=== PATIENT | female | born 1945 | race Caucasian/White ===

== ENCOUNTER 2018-11-10 12:21 | Emergency (ER) | payer MEDICARE ==
[2018-11-10 12:38] VITALS: BP 144/78
--- NOTE | 2018-11-10 13:24 | UC ---
Abdominal Pain Female HPI - HPI Summary HPI Summary: 73 year old female with PMH + for diverticulitis requiring colon resection in 2003 presents with: - loose stools x 3-4 days, multiple stools the first day, today only 1, improving daily - Blood noted in toliet bowl this AM. none prior days. - Abdominal pain, cramping days 1,2. now resolved, some tenderness still to RLQ , LLQ - bloated feeling. - Dizzinesss day 1, 2 while increased stooling, now resolved. Denies dark stooling, coffee ground stools. + for hemmorhoid in 1970's, none since. Decreased appetite, but eating well, + drinking without difficulty. Mild nausea , has improved since onset. no vomiting. NO new medications/ foods, no ill contacts no recent ABX, hospitalizations. No fever, chills. + fatigue, no other symptoms. - History of Current Complaint Chief Complaint: UCGI Stated Complaint: BLOODY STOOL Time Seen by Provider: 11/10/18 12:47 Hx Obtained From: Patient ?: No Onset/Duration: Sudden Onset, Lasting Days Severity Currently: None Pain Intensity: 0 Pain Scale Used: 0-10 Numeric Location: Discrete At: RLQ, Discrete At: LLQ Radiates: No Character: Cramping, Sharp - RLQ day 1 Aggravating Factor(s): Nothing Alleviating Factor(s): Nothing Associated Signs and Symptoms: Positive: Blood in Stool, Decreased Appetite Allergies/Adverse Reactions: Allergies Allergy/AdvReac Type Severity Reaction Status Date / Time Sulfa (Sulfonamide Allergy Unknown Verified 11/10/18 14:23 Antibiotics) Reaction Details Home Medications: Home Medications Ezetimibe TAB* [Zetia TAB*] 10 mg PO DAILY 11/10/18 [History Confirmed 11/10/18] Ezetimibe TAB* [Zetia TAB*] 10 mg PO DAILY 11/10/18 [History Confirmed 11/10/18] Oxybutynin TAB* [Ditropan TAB*] 5 mg PO DAILY 11/10/18 [History Confirmed ] cloNIDine TAB* [Catapres 0.1 MG TAB*] 0.1 mg PO BEDTIME 11/10/18 [History Confirmed 11/10/18] PMH/Surg Hx/FS Hx/Imm Hx Previously Healthy: Yes - Surgical History Surgical History: Yes Surgery Procedure, Year, and Place: Partial Hysterectomy 1979. Left Breast biopsies (benign). HPV. Bowel Resection 2003 - Family History Known Family History: Positive: Non-Contributory - Social History Alcohol Use: Occasionally Alcohol Amount: few glasses wine about every other day Substance Use Type: None Smoking Status (MU): Former Smoker Have You Smoked in the Last Year: No When Did the Patient Quit Smoking/Using Tobacco: 2003 - Immunization History Most Recent Influenza Vaccination: this season 2013 Review of Systems All Other Systems Reviewed And Are Negative: Yes Constitutional: Negative: Fever, Chills Respiratory: Positive: Negative Cardiovascular: Positive: Negative Gastrointestinal: Positive: Abdominal Pain - resolved, Diarrhea, Nausea, Other - + blood in stool Neurological: Positive: Negative Is Patient Immunocompromised?: No Physical Exam Triage Information Reviewed: Yes Appearance: Well-Appearing, No Pain Distress, Well-Nourished Vital Signs: Initial Vital Signs Temp 99.0 F 11/10/18 12:31 Pulse 89 11/10/18 12:31 Resp 16 11/10/18 12:31 BP 144/78 11/10/18 12:31 Pulse Ox 95 11/10/18 12:31 Vital Signs Reviewed: Yes Eye Exam: Normal ENT: Positive: Hearing grossly normal Abdomen Description: Positive: No Organomegaly, Soft, Distended - mild, [place] '[place] Tenderness, Other: - - putnam - normal rectal examination other than one small, non-thrombosed, nontender hemorrhoid.. Negative: Bruit, CVA Tenderness (R), CVA Tenderness (L), Guarding, Hernia @, Hepatomegaly, Splenomegaly Bowel Sounds: Positive: Present, Other: - NABS Pelvic Exam: Positive: Other - stool occult positive, no hemmorhoids seen. Musculoskeletal: Positive: Other: - normal gait Skin Exam: Normal Abd Pain Female Course/Dx - Course Course Of Treatment: Stool occult +, no shirlene blood seen, no hemorrhoids/ fisures seen, patient sent to ER fr further work up. In agreement, declined ambulance. - Differential Dx/Diagnosis Differential Diagnosis: Bowel Obstruction, Diverticulitis, Pelvic Inflammatory Disease Provider Diagnosis: Blood in stool Discharge - Sign-Out/Discharge Documenting (check all that apply): Patient Departure All imaging exams completed and their final reports reviewed: No Studies - Discharge Plan Condition: Guarded Disposition: HOME-RECOMMEND TO ED Patient Education Materials: Acute Diarrhea (ED), Acute Abdominal Pain (ED) Referrals: Ramon Delacruz MD [Primary Care Provider] - Additional Instructions: - Testing showed there was blood in your stool without any source found rectally. Due to this and your lower abdominal pain, it was recommended that you receive more care at the ER. Please go there directed from here. - Only water until seen at ER please - Billing Disposition and Condition Condition: GUARDED Disposition: Home-Recommend to ED - Attestation Statements Provider Attestation: I was available for consult. This patient was seen by the STEPHANIE. The patient was not presented to, seen by, or examined by me. Saleem Gutierrez MD
== END 2018-11-10 13:25 | disposition home health service (06) ==
LOC: UCEAST 12:21
DX: K92.1 Melena (principal); Z88.2 Allergy status to sulfonamides; Z87.891 Personal history of nicotine dependence
CPT/HCPCS: 82272; 99211; G0463

== ENCOUNTER 2018-11-10 14:17 | Emergency (ER) | payer MEDICARE ==
[2018-11-10 14:53] LABS: ABS Eosinophils 0.2 10^3/ul (0-0.6); ABS Lymphocytes 1.3 10^3/ul (1.0-4.8); ABS Monocytes 0.5 10^3/ul (0-0.8); ABS Neutrophils 6.3 10^3/ul (1.5-7.7); Hematocrit 42 % (35-47); Hemoglobin 14.3 g/dL (12.0-16.0); Lymphocyte % 15.9 %; Mean Corpuscular HGB Conc 34 g/dL (31-36); Mean Corpuscular Hemoglobin 31 pg (27-31); Mean Corpuscular Volume 90 fL (80-97); Mean Platelet Volume 8.9 fL (7.4-10.4); Platelet Count 188 10^3/uL (150-450); Red Blood Count 4.68 10^6 /uL (3.70-4.87); Red Cell Distribution Width 13 % (10-15); White Blood Count 8.3 10^3/uL (3.5-10.8)
[2018-11-10 15:04] LABS: Activated Partial Thrombo Time 34.3 seconds (26.0-38.0); INR 0.89 (0.82-1.09)
[2018-11-10 15:24] LABS: Albumin 4.5 g/dL (3.2-5.2); Albumin/Globulin Ratio 1.6 (1-3); BUN/Creatinine Ratio 22.1 (8-20); Calcium 9.9 mg/dL (8.6-10.3); EGFR African American 89.2 (>60); EGFR Non-African American 73.7 (>60); Globulin 2.9 g/dL (2-4); Potassium 3.9 mmol/L (3.5-5.0); Total Bilirubin 0.4 mg/dL (0.2-1.0); Total Protein 7.4 g/dL (6.4-8.9)
[2018-11-10 19:39] LABS: C Reactive Protein 13.93 mg/L (<8.01)
--- NOTE | 2018-11-10 19:39 | ED ---
GI/ HPI - HPI Summary HPI Summary: Patient is a 73 y/o F presenting to ED with complaints of diarrhea and blood in stool. She states that she has had diarrhea for 3-4 days. Diarrhea is characterized as "pure liquid". Yesterday, she reports she had 2-4 episodes of diarrhea. This morning, patient had a BM that was productive of diarrhea with bright red blood. She states, that the "whole toilet bowl was full of blood". Patient only had one BM today. Patient went to , no hemorrhoids noted, patient was sent to ED for further workup. She endorses some lower abdominal pain but denies fever and vomiting. On triage, pain is rated 1/10, nothing is noted to aggravate/alleviate Sx. Patient reports no recent travel outside of country. She notes that she had a colon resection in 2013 for intestinal infection. Last colonoscopy was in 2013 and is reported to have been normal. BP is 196/99 in room, she states that she took her BP meds this morning. Patient is on Xanax, Sular, Clonidine, Symbicort, Ditropan, Zetia. PCP is Dr. Delacruz. Home medications and allergies are reviewed. - History of Current Complaint Chief Complaint: EDGIBleed Time Seen by Provider: 11/10/18 19:22 Stated Complaint: DIARRHEA RECTAL BLEEDING PER PT Hx Obtained From: Patient Onset/Duration: Started Hours Ago - blood in diarrhea, Started Days Ago - diarrhea, Still Present Timing: Intermittent Current Severity: Mild Pain Intensity: 0 Location of Pain: Other - lower Associated Signs and Symptoms: Positive: Bright Red Blood w/Stool, Diarrhea, Abdominal Pain. Negative: Vomiting, Fever Aggravating Factor(s): Nothing Alleviating Factor(s): Nothing - Allergy/Home Medications Allergies/Adverse Reactions: Allergies Allergy/AdvReac Type Severity Reaction Status Date / Time Sulfa (Sulfonamide Allergy Unknown Verified 11/10/18 14:23 Antibiotics) Reaction Details Home Medications: Home Medications ALPRAZolam TAB* [Xanax TAB*] 0.25 mg PO TID 11/10/18 [History Confirmed 11/10/18 ] Nisoldipine ER (NF) [Sular (NF)] 8.5 mg PO DAILY 11/10/18 [History Confirmed 11/21] PMH/Surg Hx/FS Hx/Imm Hx Cardiovascular History: Reports: Hx Hypertension Respiratory History: Reports: Hx Chronic Obstructive Pulmonary Disease (COPD) Sensory History: Denies: Hx Legally Blind Opthamlomology History: Denies: Hx Legally Blind - Cancer History Hx Chemotherapy: No Hx Radiation Therapy: No - Surgical History Surgery Procedure, Year, and Place: Partial Hysterectomy 1979. Left Breast biopsies (benign). HPV. Bowel Resection 2003 Infectious Disease History: No Infectious Disease History: Denies: Traveled Outside the [place] in Last 30 Days Comment Only: Hx Shingles - vaccine 04/02/14 - Family History Known Family History: Positive: Other - breat malignancy - Social History Alcohol Use: Daily Alcohol Amount: few glasses wine about every other day Substance Use Type: Reports: None Smoking Status (MU): Former Smoker Have You Smoked in the Last Year: No Review of Systems Negative: Fever Positive: Abdominal Pain, Diarrhea - w/ blood in stool . Negative: Vomiting All Other Systems Reviewed And Are Negative: Yes Physical Exam - Summary Physical Exam Summary: VITAL SIGNS: Reviewed. GENERAL: Patient is a well-developed and nourished female who is lying comfortable in the stretcher. Patient is not in any acute respiratory distress. HEAD AND FACE: No signs of trauma. No ecchymosis, hematomas or skull depressions. No sinus tenderness. EYES: PERRLA, EOMI x 2, No injected conjunctiva, no nystagmus. EARS: Hearing grossly intact. Ear canals and tympanic membranes are within normal limits. MOUTH: Oropharynx within normal limits. NECK: Supple, trachea is midline, no adenopathy, no JVD, no carotid bruit, no c- spine tenderness, neck with full ROM CHEST: Symmetric, no tenderness at palpation LUNGS: Clear to auscultation bilaterally. No wheezing or crackles. CVS: Regular rate and rhythm, S1 and S2 present, no murmurs or gallops appreciated. ABDOMEN: Soft, non-tender. No signs of distention. No rebound no guarding, and no masses palpated. Bowel sounds are mildly hyperactive. RECTAL EXAM: No hemorrhoids, rectum is empty, no masses. Female blocker and cutter contact lens, nurse Lorena, was present for exam. EXTREMITIES: FROM in all major joints, no edema, no cyanosis or clubbing. NEURO: Alert and oriented x 3. No acute neurological deficits. Speech is normal and follows commands. SKIN: Dry and warm Triage Information Reviewed: Yes Vital Signs On Initial Exam: Initial Vitals Temp Pulse Resp BP Pulse Ox 98.5 F 79 16 165/94 98 11/10/18 14:21 11/10/18 14:21 11/10/18 14:21 11/10/18 14:21 11/10/18 14:21 Vital Signs Reviewed: Yes Diagnostics - Vital Signs Vital Signs Temp Pulse Resp BP Pulse Ox 11/10/18 17:46 98.1 F 67 20 153/80 97 11/10/18 15:55 98 F 61 16 153/79 96 11/10/18 14:21 98.5 F 79 16 165/94 98 - Laboratory Lab Results: Lab Results 11/10/18 11/10/18 11/10/18 Range/Units 14:43 14:43 14:43 WBC 8.3 (3.5-10.8) 10^3/uL RBC 4.68 (3.70-4.87) 10^6 /uL Hgb 14.3 (12.0-16.0) g/dL Hct 42 (35-47) % MCV 90 (80-97) fL MCH 31 (27-31) pg MCHC 34 (31-36) g/dL RDW 13 (10-15) % Plt Count 188 (150-450) 10^3/uL MPV 8.9 (7.4-10.4) fL Neut % (Auto) 75.8 % Lymph % (Auto) 15.9 % [place] % (Auto) 5.9 % Eos % (Auto) 2.0 % Baso % (Auto) 0.4 % Absolute Neuts (auto) 6.3 (1.5-7.7) 10^3/ul Absolute Lymphs (auto) 1.3 (1.0-4.8) 10^3/ul Absolute Monos (auto) 0.5 (0-0.8) 10^3/ul Absolute Eos (auto) 0.2 (0-0.6) 10^3/ul Absolute Basos (auto) 0.0 (0-0.2) 10^3/ul Absolute Nucleated RBC 0.0 10^3/ul Nucleated RBC % 0.0 INR (Anticoag Therapy) 0.89 (0.82-1.09) APTT 34.3 (26.0-38.0) seconds Sodium 139 (135-145) mmol/L Potassium 3.9 (3.5-5.0) mmol/L Chloride 109 (101-111) mmol/L Carbon Dioxide 22 (22-32) mmol/L Anion Gap 8 (2-11) mmol/L BUN 17 (6-24) mg/dL Creatinine 0.77 (0.51-0.95) mg/dL Est GFR ( Amer) 89.2 (>60) Est GFR (Non-Af Amer) 73.7 (>60) BUN/Creatinine Ratio 22.1 H (8-20) Glucose 94 (70-100) mg/dL Calcium 9.9 (8.6-10.3) mg/dL Total Bilirubin 0.40 (0.2-1.0) mg/dL AST 14 (13-39) U/L ALT 14 (7-52) U/L Alkaline Phosphatase 99 (34-104) U/L C-Reactive Protein Pending Total Protein 7.4 (6.4-8.9) g/dL Albumin 4.5 (3.2-5.2) g/dL Globulin 2.9 (2-4) g/dL Albumin/Globulin Ratio 1.6 (1-3) Blood Type Antibody Screen 11/10/18 Range/Units 14:43 WBC (3.5-10.8) 10^3/uL RBC (3.70-4.87) 10^6 /uL Hgb (12.0-16.0) g/dL Hct (35-47) % MCV (80-97) fL MCH (27-31) pg MCHC (31-36) g/dL RDW (10-15) % Plt Count (150-450) 10^3/uL MPV (7.4-10.4) fL Neut % (Auto) % Lymph % (Auto) % [place] % (Auto) % Eos % (Auto) % Baso % (Auto) % Absolute Neuts (auto) (1.5-7.7) 10^3/ul Absolute Lymphs (auto) (1.0-4.8) 10^3/ul Absolute Monos (auto) (0-0.8) 10^3/ul Absolute Eos (auto) (0-0.6) 10^3/ul Absolute Basos (auto) (0-0.2) 10^3/ul Absolute Nucleated RBC 10^3/ul Nucleated RBC % INR (Anticoag Therapy) (0.82-1.09) APTT (26.0-38.0) seconds Sodium (135-145) mmol/L Potassium (3.5-5.0) mmol/L Chloride (101-111) mmol/L Carbon Dioxide (22-32) mmol/L Anion Gap (2-11) mmol/L BUN (6-24) mg/dL Creatinine (0.51-0.95) mg/dL Est GFR ( Amer) (>60) Est GFR (Non-Af Amer) (>60) BUN/Creatinine Ratio (8-20) Glucose (70-100) mg/dL Calcium (8.6-10.3) mg/dL Total Bilirubin (0.2-1.0) mg/dL AST (13-39) U/L ALT (7-52) U/L Alkaline Phosphatase (34-104) U/L C-Reactive Protein Total Protein (6.4-8.9) g/dL Albumin (3.2-5.2) g/dL Globulin (2-4) g/dL Albumin/Globulin Ratio (1-3) Blood Type A Positive Antibody Screen Negative Result Diagrams: 11/10/18 14:43 11/10/18 14:43 Lab Statement: Any lab studies that have been ordered have been reviewed, and results considered in the medical decision making process. Re-Evaluation - Re-Evaluation First Eval Re-Evaluation Time: 20:30 Comment: Patient reports that she just wants to leave and does not want to wait for her BP to lower. Labs were unremarkable and her physical exam was benign with the exception of mild hyperactive bowel sounds. Patient is most likely to have viral enteritis. Patient will be discharged to home to follow up with GI for possible colonoscopy. Patient agreeable with this plan. GIGU Course/Dx - Course Course Of Treatment: Patient is a 73 y/o F presenting to ED with complaints of diarrhea and blood in stool. She states that she has had diarrhea for 3-4 days. Diarrhea is characterized as "pure liquid". Yesterday, she reports she had 2-4 episodes of diarrhea. This morning, patient had a BM that was productive of diarrhea with bright red blood. She states, that the "whole toilet bowl was full of blood". Patient only had one BM today. Patient went to , no hemorrhoids noted, patient was sent to ED for further workup. On physical exam, patient is noted to have mildly hyperactive bowel sounds. On rectal exam, no hemorrhoids, empty rectum, and no masses. Labs showed Hgb 14.3, Hct 42, WBC 8.3 , BUN/creatinine ratio 22.1, CRP 13.93. Patient was given lomotil, 1 tab PO, and clonidine 0.1 mg PO. Patient reports that she just wants to leave and does not want to wait for her BP to lower. Labs were unremarkable and her physical exam was benign with the exception of mild hyperactive bowel sounds. Patient is most likely to have viral enteritis. Patient will be discharged to home to follow up with GI for possible colonoscopy. Patient agreeable with this plan. - Diagnoses Provider Diagnoses: Enteritis Discharge - Sign-Out/Discharge Documenting (check all that apply): Patient Departure - discharge Patient Received Moderate/Deep Sedation with Procedure: No - Discharge Plan Condition: Stable Disposition: HOME Patient Education Materials: Acute Diarrhea (ED), Enteritis (ED) Referrals: Ramon Delacruz MD [Primary Care Provider] - 3 Days Kurt Mullins MD [Medical Doctor] - As Soon As Possible Additional Instructions: FOLLOW UP WITH REVENUE SPECIALIST SOON POSSIBLE FOR POSSIBLE COLONOSCOPY. PLEASE RETURN TO ED FOR ANY NEW OR WORSENING SYMPTOMS. FOLLOW UP WITH YOUR PRIMARY CARE PHYSICIAN WITHIN THREE DAYS. - Attestation Statements Document Initiated by Claudiaibmarcos: Yes Documenting Scribe: LISA SZYMANSKI Provider For Whom Manuel is Documenting (Include Credential): JILL GREER MD Scribe Attestation: ILISA, scribed for JILL GREER MD on 11/10/18 at 2038. Status of Scribe Document: Ready
[2018-11-10] MEDS ORDERED: cloNIDine TAB* 0.1 MG PO ONE (19:44)
[2018-11-10] MEDS ORDERED: Diphenoxylat/Atrop 2.5-0.025M* 1 TAB PO ONE (19:45)
[2018-11-10 20:29] VITALS: BP 166/93
== END 2018-11-10 20:28 | disposition home or self-care (01) ==
LOC: ED 14:17
DX: K52.9 Noninfective gastroenteritis and colitis, unspecified (principal); I10 Essential (primary) hypertension; J44.9 Chronic obstructive pulmonary disease, unspecified; Z88.2 Allergy status to sulfonamides; Z87.891 Personal history of nicotine dependence
CPT/HCPCS: 36415; 80053; 85025; 85610; 85730; 86140; 86850; 86900; 86901; 99283; A9270-GY

== ENCOUNTER 2019-03-20 15:35 | Emergency (ER) | payer MEDICARE ==
[2019-03-20 16:05] VITALS: BP 161/82
--- NOTE | 2019-03-20 17:01 | UC ---
Skin Complaint HPI - HPI Summary HPI Summary: 73-year-old female presents with 4 day history of progressively worsening pruritic rash. States she was seen by a nurse practitioner at her primary care provider's office at the outset and was prescribed betamethasone cream. States the rash was initially only on her lower legs but has has continued to spread and now covers most of her body. States has taken [id number] diphenhydramine with no relief in the itching. Denies swelling of the lips, tongue, throat, difficulty breathing, changes in medications, diet, soaps, laundry detergents, lotions, cosmetics, or any known contact with environmental irritants. - History of Current Complaint Chief Complaint: UCRash Time Seen by Provider: 03/20/19 16:41 Stated Complaint: RASH Hx Obtained From: Patient Pain Intensity: 2 - Allergy/Home Medications Allergies/Adverse Reactions: Allergies Allergy/AdvReac Type Severity Reaction Status Date / Time Sulfa (Sulfonamide Allergy Unknown Verified 03/20/19 16:05 Antibiotics) Reaction Details Home Medications: Home Medications Betamethasone Dipropionate 15 gm TP DAILY WITH MEAL 03/20/19 [History Confirmed 03/20/19] PMH/Surg Hx/FS Hx/Imm Hx Endocrine History: Dyslipidemia Cardiovascular History: Hypertension Respiratory History: COPD Psychological History: Anxiety - Surgical History Surgical History: Yes Surgery Procedure, Year, and Place: Partial Hysterectomy 1979. Left Breast biopsies (benign). HPV. Bowel Resection 2003 - Family History Known Family History: Positive: Other - breat malignancy , Non-Contributory - Social History Occupation: Retired Lives: With Family Alcohol Use: Daily Alcohol Amount: few glasses wine about every other day Substance Use Type: None Smoking Status (MU): Former Smoker Have You Smoked in the Last Year: No When Did the Patient Quit Smoking/Using Tobacco: 2003 - Immunization History Most Recent Influenza Vaccination: this season 2013 Review of Systems All Other Systems Reviewed And Are Negative: Yes Constitutional: Negative: Fever, Chills Skin: Positive: Rash ENT: Negative: Other - Swelling of the lips, tongue, or throat Respiratory: Negative: Shortness Of Breath Cardiovascular: Positive: Negative Gastrointestinal: Positive: Negative Genitourinary: Positive: Negative Musculoskeletal: Positive: Negative Neurological: Positive: Negative Is Patient Immunocompromised?: No Physical Exam - Summary Physical Exam Summary: GENERAL APPEARANCE: Well developed, well nourished, alert and cooperative, and appears to be in no acute distress. MOUTH/THROAT: No swelling of the lips or tongue. Pharynx normal. No tonsilar inflammation, swelling, exudate, or lesions. Uvula midline. Airway patent. NECK: Neck supple, non-tender without lymphadenopathy. CARDIAC: Normal S1 and S2. No S3, S4 or murmurs. Rhythm is regular. There is no peripheral edema, cyanosis or pallor. Extremities are warm and well perfused. Capillary refill is less than 2 seconds. Peripheral pulses intact. LUNGS: Clear to auscultation without rales, rhonchi, wheezing or diminished breath sounds. ABDOMEN: Positive bowel sounds. Soft, nondistended, nontender. No guarding or rebound. No masses or hepatosplenomegally. MUSKULOSKELETAL: ROM intact to all extremities. No joint erythema or tenderness. Normal muscular development. Normal gait. SKIN: Full-body erythematous, raised, maculopapular rash involving the neck, trunk, and lower extremities. Skin normal color, texture and turgor for age. Triage Information Reviewed: Yes Vital Signs: Initial Vital Signs Temp 97.7 F 03/20/19 16:01 Pulse 73 03/20/19 16:01 Resp 18 03/20/19 16:01 BP 161/82 03/20/19 16:01 Pulse Ox 97 03/20/19 16:01 Vital Signs Reviewed: Yes Course/Dx - Course Course Of Treatment: 73-year-old female presents with 4 day history of progressively worsening pruritic rash. States she was seen by a nurse practitioner at her primary care provider's office at the outset and was prescribed betamethasone cream. States the rash was initially only on her lower legs but has has continued to spread and now covers most of her body. States has taken [id number] diphenhydramine with no relief in the itching. Denies swelling of the lips, tongue, throat, difficulty breathing, changes in medications, diet, soaps, laundry detergents, lotions, cosmetics, or any known contact with environmental irritants. Afebrile. Hypertensive otherwise vital signs stable. Patient had a full-body erythematous, raised, maculopapular rash involving the neck, trunk, and lower extremities, no swelling of lips, tongue, or throat, clear bilateral breath sounds, and otherwise unremarkable exam. Discussed with patient that her rash appears to be a dermatitis of unknown cause and considering the progressive worsening of the rash and recommending starting her on a prednisone taper and providing her with hydroxyzine 50 mg every 6 hours as needed for itching. She is to follow-up with her primary care provider in 3 days if symptoms are not improving. Anticipatory guidance and warning symptoms were reviewed with the patient. Verbalized understanding and agrees with plan of care. - Differential Diagnoses - Skin Complaint Differential Diagnoses: Allergic Reaction, Contact Dermatitis, Drug Rash, Poison [place], Poison [place], Urticaria, Viral Exanthem - Diagnoses Provider Diagnosis: Dermatitis Discharge ED - Sign-Out/Discharge Documenting (check all that apply): Patient Departure All imaging exams completed and their final reports reviewed: No Studies - Discharge Plan Condition: Stable Disposition: HOME Prescriptions: hydrOXYzine HCL [Hydroxyzine HCl] 50 mg PO Q6HR PRN #20 tablet PRN Reason: Itching predniSONE TAB* [Deltasone 10 MG TAB*] 10 mg PO DAILY #30 tab Patient Education Materials: Dermatitis (ED) Referrals: Ramon Delacruz MD [Primary Care Provider] - 3 Days (If no improvement in symptoms.) Additional Instructions: Your rash appears to be a dermatitis of unknown cause. We will start you on an oral steroid to help with the rash. Start prednisone 40 mg (4 tablets) daily for 3 days, then 30 mg (3 tablets) daily for 3 days, then 20 mg (2 tablets) daily for 3 days then 10 mg (1 tablets ) daily for 3 days, then stop. Take hydroxyzine 50 mg 1 tablet every 6 hours as needed for itching. Be aware that this medication will cause drowsiness do not take and drive or operate machinery. Follow-up with your primary care provider in 3 days if symptoms are not improving. Seek immediate medical attention in the emergency room if you develop fever greater than 100.5 F, have any swelling of the lips, tongue, throat, difficulty breathing, or any worsening of symptoms. - Billing Disposition and Condition Condition: STABLE Disposition: Home - Attestation Statements Provider Attestation: Per institutional requirements, I have reviewed the chart, however, I was not consulted specifically or made aware of this patient by the midlevel provider. I did not personally evaluate, interact with , or disposition this patient.
== END 2019-03-20 17:09 | disposition home or self-care (01) ==
LOC: UCEAST 15:35
DX: L30.9 Dermatitis, unspecified (principal); J44.9 Chronic obstructive pulmonary disease, unspecified; I10 Essential (primary) hypertension; Z88.2 Allergy status to sulfonamides; Z87.891 Personal history of nicotine dependence
CPT/HCPCS: 99212; G0463

== ENCOUNTER 2019-04-29 12:08 | Inpatient (IN) | payer MEDICARE ==
--- OUTSIDE RECORDS SUMMARY | 2019-04-29 12:15 | XMS REPORT | Continuity of Care Document ---
:1945 External Reference #:[id number] Author Name Sandra Hunt MD (transmitted by agent of provider Devin Otero) Address [address] [place] [address] Care Team Providers Name Role Phone Ramon Delacruz MD - Family Care Team Information Commutator Operator [phone] Medicine Problems Description No Information Available Social History Type Date Description Comments Sex Unknown ETOH Use Consumes 2 glasses of wine per day Tobacco Use Start: Unknown End: Patient is a former smoker quit 2003 Unknown Smoking Status Reviewed: 04/20/19 Patient is a former smoker quit 2003 Exercise Type/Frequency Does not exercise Allergies, Adverse Reactions, Alerts Active Allergies Reaction Severity Comments Date Sulfa Antibiotics childhood - unknown reaction 04/19/2019 Medications Active Medications SIG Qnty Indications Ordering Provider Date Losartan Potassium 1 by mouth every Unknown 25mg day Tablets Oxybutynin Chloride ER 1 by mouth every Unknown 5mg day Tablets ER 24HR Ezetimibe 1 by mouth every Unknown 10mg Tablets day Clonidine HCL 1 tab daily by Unknown 0.1mg Tablets mouth Symbicort 2 puff twice a Unknown 160-4.5mcg/Act day Aerosol Xanax one by mouth up Unknown 0.25mg Tablets to three times daily as needed Betamethasone apply to affected Unknown Dipropionate area twice a day 0.05% Ointment Immunizations Description No Information Available Vital Signs Date Vital Result Comment 04/20/2019 1:16pm Height 61 inches 5'1" Weight 125.00 lb Heart Rate 66 /min BP Systolic Sitting 142 mmHg BP Diastolic Sitting 78 mmHg Respiratory Rate 16 /min Body Temperature 97.9 F BMI (Body Mass Index) 23.6 kg/m2 Results Description No Information Available Procedures Description No Information Available Medical Devices Description No Information Available Encounters Description No Information Available Assessments Date Code Description Provider 04/20/2019 C50.311 Malignant neoplasm of lower-inner quadrant of Sandra Hunt MD right female breast Plan of Treatment 04/20/2019 - Sandra Hunt, MDC50.311 Malignant neoplasm of lower-inner quadrant of right female breastNew Xrays:MRI Breast Bilateral W/Wo, Ordered: Follow up:after MRI Functional Status Description No Information Available Mental Status Description No Information Available Referrals Description No Information Available
[2019-04-29] MEDS ORDERED: NS 0.9% 1000 ML** 1,000 ML IV ONE (12:37)
[2019-04-29] MEDS ORDERED: Morphine 4 MG/ML VIAL (1 ml) 4 MG/ML VIAL IV ONE ×2 (12:37→14:10)
[2019-04-29 12:40] LABS: ABS Basophils 0.1 10^3/ul (0-0.2); ABS Lymphocytes 0.9 10^3/ul (1.0-4.8); ABS Monocytes 0.8 10^3/ul (0-0.8); Eosinophil % 0.2 %; Hematocrit 39 % (35-47); Hemoglobin 13.3 g/dL (12.0-16.0); Lymphocyte % 6.5 %; Mean Corpuscular HGB Conc 34 g/dL (31-36); Mean Corpuscular Hemoglobin 31 pg (27-31); Mean Corpuscular Volume 90 fL (80-97); Mean Platelet Volume 9.4 fL (7.4-10.4); Platelet Count 182 10^3/uL (150-450); Red Blood Count 4.36 10^6 /uL (3.70-4.87); Red Cell Distribution Width 13 % (10-15); White Blood Count 13.8 10^3/uL (3.5-10.8)
--- NOTE | 2019-04-29 12:40 | ED ---
Abdominal Pain/Female - HPI Summary HPI Summary: This patient is a 73 year old female presenting to [facility] with a chief complaint of abdominal pain since 24 hours ago. She states it is upper abdominal pain. She reports severe bloating and abdominal swelling. She went to see her PCP Dr. Delacruz and hcang went her here. She was recently diagnosed with breast cancer 2 weeks ago and has yet to start treatment pending MRI. Medications reviewed, allergies noted. She denies fever, chills, nausea, vomiting. She had a normal BM this morning with no change in pain. She states she had colon resection in 2003 due to diverticulitis. She still has her appendix and gallbladder. - History of Current Complaint Chief Complaint: EDAbdPain Stated Complaint: ABDOMINAL PAIN AND SWELLING PER PT Time Seen by Provider: 04/29/19 12:14 Hx Obtained From: Patient Onset/Duration: Lasting Hours, Lasting Days Pain Intensity: 10 Pain Scale Used: 0-10 Numeric Location: Discrete At: RUQ, Discrete At: LUQ Allergies/Adverse Reactions: Allergies Allergy/AdvReac Type Severity Reaction Status Date / Time Sulfa (Sulfonamide Allergy Unknown Verified 04/29/19 12:13 Antibiotics) Reaction Details PMH/Surg Hx/FS Hx/Imm Hx Endocrine/Hematology History: Denies: Hx Diabetes, Hx Thyroid Disease Cardiovascular History: Reports: Hx Hypertension Respiratory History: Reports: Hx Chronic Obstructive Pulmonary Disease (COPD) Denies: Hx Asthma GI History: Denies: Hx Ulcer Sensory History: Denies: Hx Legally Blind Opthamlomology History: Denies: Hx Legally Blind - Cancer History Hx Chemotherapy: No Hx Radiation Therapy: No - Surgical History Surgery Procedure, Year, and Place: Partial Hysterectomy 1979. Left Breast biopsies (benign). HPV. Bowel Resection 2003 Infectious Disease History: No Infectious Disease History: Denies: Hx Hepatitis, Hx Human Immunodeficiency Virus (HIV), Traveled Outside the [place] in Last 30 Days Comment Only: Hx Shingles - vaccine 04/02/14 - Family History Known Family History: Positive: Other - breat malignancy , Non-Contributory - Social History Alcohol Use: Daily Alcohol Amount: 1-2 glasses of wine Substance Use Type: Reports: None Smoking Status (MU): Former Smoker Have You Smoked in the Last Year: No Review of Systems Negative: Fever, Chills Positive: Abdominal Pain - With bloating/distension. Negative: Vomiting, Nausea All Other Systems Reviewed And Are Negative: Yes Physical Exam - Summary Physical Exam Summary: Constitutional: Well-developed, Well-nourished, Alert. (-) Distressed Skin: Warm, Dry HENT: Normocephalic; Atraumatic Eyes: Conjunctiva normal Neck: Musculoskeletal ROM normal neck. (-) JVD, (-) Stridor, (-) Tracheal deviation Cardio: Rhythm regular, rate normal, Heart sounds normal; Intact distal pulses; Radial pulses are 2+ and symmetric. (-) Murmur Pulmonary/Chest wall: Effort normal. (-) Respiratory distress, (-) Wheezes, (-) Rales Abd: Soft, (-) tenderness, (-) Distension, (-) Guarding, (-) Rebound Musculoskeletal: (-) Edema Lymph: (-) Cervical adenopathy Neuro: Alert, Oriented x3 Psych: Mood and affect Normal Triage Information Reviewed: Yes Vital Signs On Initial Exam: Initial Vitals Temp Pulse Resp BP Pulse Ox 97.7 F 89 18 203/127 98 04/29/19 12:10 04/29/19 12:10 04/29/19 12:10 04/29/19 12:10 04/29/19 12:10 Vital Signs Reviewed: Yes Procedures - Sedation Patient Received Moderate/Deep Sedation with Procedure: No Diagnostics - Vital Signs Vital Signs Temp Pulse Resp BP Pulse Ox 04/29/19 12:10 97.7 F 89 18 203/127 98 - Laboratory Result Diagrams: 04/29/19 12:31 04/29/19 12:31 Lab Statement: Any lab studies that have been ordered have been reviewed, and results considered in the medical decision making process. - CT Abd/Pel CT Interpretation Completed By: Radiologist Summary of CT Findings: 1. Diverticulitis wihtout loculated fluid collection to suggest abscess. 2. There is mucosal thickening of the sigmoid colon which may reflect inflammatory change given the associated diverticulitis. Recommend follow-up imaging after resolution of acute symptoms. 3. There is abnormal enlargement of the ovaries bilaterally. A gastric malignancy, the differential includes metastatic disease to the ovaries. 4. There is a small intrapelvic ascites. 5. Atherosclerosis. 6. There are low attenuation hepatic parenchymal lesions which may represent hepatic cyst, though one is not clearly visualized on the noncontrast examination of June 17, 2009. ED Provider has reviewed this report. Abdominal Pain Fem Course/Dx - Course Course Of Treatment: Patient is here with diffuse abdominal pain. Patient was recently diagnosed with breast cancer and has not started treatment. Patient does appear distended with diffuse mild tenderness. Patient had blood performed which showed a leukocytosis. Patient had CT scan which showed uncomplicated diverticulitis, trace ascites, and ovarian lesions concerning for metastatic disease. Patient is given morphine with minimal improvement in her symptoms. Patient was comfortable with discharge and given her age, comorbid status, and diverticulitis, patient was admitted to the hospital. Patient was given Flagyl and ciprofloxacin - Diagnoses Provider Diagnoses: Diverticulitis, Ascites, Abdominal pain, diffuse Discharge ED - Sign-Out/Discharge Documenting (check all that apply): Patient Departure - Admission, accepted by Dr. Guzmán, Hospitalist - Discharge Plan Condition: Stable Disposition: ADMITTED TO [facility] - Billing Disposition and Condition Condition: STABLE Disposition: Admitted to [facility] - Attestation Statements Document Initiated by Manuel: Yes Documenting Claudiaibe: Gage Seals Provider For Whom Manuel is Documenting (Include Credential): Saleem Gutierrez MD Scribe Attestation: Gage Agarwal, scribed for Saleem Gutierrez MD on 04/29/19 at 1840. Scribe Documentation Reviewed: Yes Provider Attestation: The documentation as recorded by the Gage fontana accurately reflects the service I personally performed and the decisions made by , Saleem Gutierrez MD Status of Scribe Document: Viewed
[2019-04-29 12:56] LABS: Albumin 4.1 g/dL (3.2-5.2); Albumin/Globulin Ratio 1.5 (1-3); BUN/Creatinine Ratio 21.3 (8-20); Calcium 9.5 mg/dL (8.6-10.3); EGFR African American 85.3 (>60); EGFR Non-African American 70.5 (>60); Globulin 2.7 g/dL (2-4); Potassium 3.9 mmol/L (3.5-5.0); Total Bilirubin 0.8 mg/dL (0.2-1.0); Total Protein 6.8 g/dL (6.4-8.9)
[2019-04-29] MEDS ORDERED: Iohexol 300* (CONTRAST) 10 ML SDV IV ONE (13:16)
[2019-04-29] MEDS ORDERED: Ciprofloxacin 400MG IVPREMIX(* 400 MG/200 ML BAG IVPB ONE (14:13)
[2019-04-29] MEDS ORDERED: metroNIDAZOLE IV 500 MG/100ML* 500 MG/100 ML BAG IVPB ONE (14:13)
[2019-04-29] MEDS ORDERED: PROCHLORPERAZINE INJ 5 MG/ML 2 ML VIAL IV PRN (15:09)
[2019-04-29] MEDS ORDERED: Lactated Ringers 1000 ML Bag* 1,000 ML IV SCH (16:00)
[2019-04-29] MEDS: Morphine 10 MG/ML VIAL (1 ml) IV PRN ×2 (16:40→22:27)
[2019-04-29] MEDS: Ciprofloxacin 400MG IVPREMIX(* 400 MG/200 ML BAG IVPB SCH (16:50)
--- NOTE | 2019-04-29 16:57 | HP ---
CC: Dr. Delacruz; Dr. Ceja * [facility] MEDICINE HISTORY AND PHYSICAL: DATE OF ADMISSION: 04/29/19 PRIMARY CARE PHYSICIAN: Dr. Delacruz. ONCOLOGIST: Dr. Ceja. ATTENDING PHYSICIAN: Dr. Liat Guzmán * (dictation provided by Zina Glass NP) . CHIEF COMPLAINT: Abdominal pain. HISTORY OF PRESENT ILLNESS: Ms. Smith is a 73-year-old female with a past medical history of distant history of right hemicolectomy for diverticulitis in 2003 and recent diagnosis of breast cancer earlier this month, who presents today to the hospital with concern for sudden onset of abdominal pain. Ms. Smith states that she has been in a reasonable state of health. She was diagnosed with breast cancer after a finding of an abnormality on routine breast cancer screening that resulted in finding via biopsy of an invasive mammary adenocarcinoma and results of the biomarkers are pending. The patient is following with Dr. Ceja in [facility]. The patient states that yesterday at about 3 o'clock in the afternoon she developed a sudden onset of epigastric pain that seemed to wrap all the way around her abdomen. It was quite severe by the early evening and she had pain throughout her entire abdomen and felt bloated. She did not have any nausea or vomiting. She has not eaten anything since early yesterday. She states that she has had a couple of bowel movements that were normal for her. She denies any other symptoms. She has had no chest pain or shortness of breath. No fever. In the emergency room, Ms. Smith had labs which showed a white blood cell count of 13. Remainder of her labs were unremarkable. She had an abdomen and pelvis CT that showed concern for diverticulitis as well as some focal wall mural thickening. She also had concern for finding of abnormally and diffusely swollen ovaries bilaterally. The official read is "diverticulitis without loculated fluid collection to suggest abscess. There is mucosal thickening of the sigmoid colon, which may reflect inflammatory change given the associated diverticulitis. Recommend followup imaging after resolution of acute symptoms. There is abnormal enlargement of the ovaries bilaterally. A gastric malignancy is included in the differential with metastatic disease to the ovaries. There are small intrapelvic ascites, atherosclerosis. There are low attenuation hepatic parenchymal lesions, which may represent hepatic cysts." PAST MEDICAL HISTORY: 1. Recent diagnosis of breast cancer on the right with finding of invasive mammary adenocarcinoma. 2. Distant history in 2003 of right hemicolectomy for diverticulitis. 3. Hypertension. 4. Hyperlipidemia. MEDICATIONS OUTPATIENT: 1. Clonidine 0.1 mg p.o. at bedtime. 2. Oxybutynin 5 mg p.o. q.p.m. 3. Losartan 25 mg p.o. q.a.m. 4. Zetia 10 mg p.o. q.p.m. 5. Symbicort 160/4.5 two puffs inhaled b.i.d. 6. Alprazolam 0.25 mg p.o. t.i.d. ALLERGIES: SULFA. FAMILY HISTORY: The patient reports that her mother related to old age at 92, dad had lung cancer. She has a sister who had breast cancer at about age 67. Her paternal grandmother had breast cancer and her maternal grandmother had a history of colon cancer. SOCIAL HISTORY: The patient is a former smoker. She quit smoking in 2003. She drinks alcohol nightly, usually one glass of wine only. No report of drug use. She states her will be the healthcare proxy. REVIEW OF SYSTEMS: A 14-point review of systems was completed with Ms. Smith and all those not mentioned above were negative. PHYSICAL EXAMINATION GENERAL: Ms. Smith is sitting up in the bed. She is in no acute distress. She does state that her abdomen is sore and hurting. VITAL SIGNS: Temperature 97.7, pulse rate 86, respiratory rate 16, O2 saturation 97% on room air, and blood pressure 147/83. LUNGS: Clear to auscultation bilaterally with no accessory muscle use and good aeration. HEART: S1, S2. No murmur, rub, or gallop and regular. ABDOMEN: Distended. It is soft. It has some generalized tenderness, most notable in the mid abdomen above the umbilicus. There is no rebound. EXTREMITIES: No cyanosis or edema. NEURO: She is alert. She is oriented x3. She moves all extremities equally. SKIN: Intact. DIAGNOSTIC STUDIES/LAB DATA: Sodium 136, potassium 3.9, chloride 104, serum bicarbonate 24, BUN 17, creatinine 0.8, glucose 116. AST 11, ALT 11, alk phos 109. WBC 13.8, hemoglobin 13.3, hematocrit 39, platelet count 182. Abdomen and pelvis CT is as read above. ASSESSMENT AND PLAN: Ms. Smith is a 73-year-old female with a past medical history of right hemicolectomy for diverticulitis, hypertension, hyperlipidemia , with a recent diagnosis of breast cancer on the right, who presents today with a sudden onset of abdominal pain, found to have diverticulitis and concern for abnormal ovarian enlargement. Our plans are for inpatient admission. I expect her length of stay to be greater than 2 days for the followin. Abdominal pain. I suspect with the sudden onset of pain, this does likely reflect diverticulitis. Plan to treat with Cipro and Flagyl. She will have intravenous fluids. She will have ice chips only overnight given the severity of her pain and we can reevaluate in the a.m. and advance the diet as appropriate. She does not show any sign of sepsis. 2. Ovarian enlargement. This is quite concerning especially given her recent diagnosis of breast cancer. I did order a COSME score to evaluate for ovarian malignancy. Anticipate that she would have treatment here for diverticulitis and then follow up for additional evaluation of this ovarian enlargement with her oncologist as part of her ongoing breast cancer workup and treatment, but we will certainly discuss this with Oncology prior to her discharge. 3. Menopause. The patient has hot flashes, for which she uses clonidine and it is very effective for her. I think it will be appropriate to continue that. 4. Hypertension. We will hold her losartan. 5. Hyperlipidemia. Continue Zetia. 6. Anxiety. Continue alprazolam. 7. Code status is full code. TIME SPENT: Approximately 60 minutes was spent on the admission of this patient , more than half the time was spent with the patient at the bedside reviewing the events leading up to this hospitalization, performing the physical examination, and reviewing the plan of care. ZINA GLASS, LAMONT [id number]/[facility] #: [id number] JOHN
[2019-04-29 17:22] LABS: Urine Appearance Clear; Urine Bilirubin Negative (Negative); Urine Blood 2+ (Negative); Urine Color Straw; Urine Glucose Negative (Negative); Urine Ketones Trace (Negative); Urine Nitrite Negative (Negative); Urine Protein Negative (Negative); Urine Specific Gravity 1.036 (1.010-1.030); Urine Urobilinogen Negative (Negative)
[2019-04-29 17:25] LABS: Urine Bacteria Absent (Absent); Urine Red Blood Cell Trace(0-2/hpf) (Absent); Urine Squamous Epithelial Cell Present (Absent); Urine White Blood Cell Absent (Absent)
[2019-04-29] MEDS: Oxybutynin TAB* 5 MG PO SCH (17:26)
[2019-04-29] MEDS: Ezetimibe TAB* 10 MG PO SCH (17:26)
[2019-04-29] MEDS: ALPRAZolam TAB* 0.25 MG PO SCH (20:26)
[2019-04-29] MEDS: cloNIDine TAB* 0.1 MG PO SCH (20:26)
[2019-04-29] MEDS: metroNIDAZOLE IV 500 MG/100ML* 500 MG/100 ML BAG IVPB SCH (22:08)
[2019-04-29] MEDS: Heparin VIAL(*) 5000 UNITS/ML VIAL (FIVE THOUSAND) SUBCUT SCH (22:08)
[2019-04-30] MEDS: Ciprofloxacin 400MG IVPREMIX(* 400 MG/200 ML BAG IVPB SCH ×2 (04:14→16:30)
[2019-04-30 05:18] LABS: ABS Eosinophils 0.1 10^3/ul (0-0.6); ABS Monocytes 0.6 10^3/ul (0-0.8); ABS Neutrophils 7.7 10^3/ul (1.5-7.7); Eosinophil % 0.6 %; Hematocrit 31 % (35-47); Hemoglobin 10.7 g/dL (12.0-16.0); Lymphocyte % 10.4 %; Mean Corpuscular HGB Conc 35 g/dL (31-36); Mean Corpuscular Hemoglobin 31 pg (27-31); Mean Corpuscular Volume 90 fL (80-97); Mean Platelet Volume 9.1 fL (7.4-10.4); Platelet Count 153 10^3/uL (150-450); Red Blood Count 3.45 10^6 /uL (3.70-4.87); Red Cell Distribution Width 13 % (10-15); White Blood Count 9.4 10^3/uL (3.5-10.8)
[2019-04-30 05:34] LABS: BUN/Creatinine Ratio 16.5 (8-20); Calcium 8.4 mg/dL (8.6-10.3); EGFR African American 73.5 (>60); EGFR Non-African American 60.8 (>60); Potassium 3.6 mmol/L (3.5-5.0)
[2019-04-30] MEDS: Heparin VIAL(*) 5000 UNITS/ML VIAL (FIVE THOUSAND) SUBCUT SCH ×3 (06:19→21:49)
[2019-04-30] MEDS: metroNIDAZOLE IV 500 MG/100ML* 500 MG/100 ML BAG IVPB SCH ×3 (06:19→22:05)
[2019-04-30] MEDS: Morphine 10 MG/ML VIAL (1 ml) IV PRN ×2 (06:33→14:01)
[2019-04-30] MEDS: PTO:Budesonide/Formote 160/4.5(NF) MDI INH SCH ×2 (07:48→21:49)
[2019-04-30] MEDS: ALPRAZolam TAB* 0.25 MG PO SCH ×3 (07:48→21:49)
[2019-04-30] MEDS ORDERED: Lactated Ringers 1000 ML Bag* 1,000 ML IV SCH (09:54)
--- NOTE | 2019-04-30 10:00 | PN ---
Subjective Date of Service: 04/30/19 Interval History: Pt c/o that her abd feels "sore". Last BM yesterday AM, passes flatus, denies nausea. abd pain is much less severe than at admission Objective Active Medications: Alprazolam (Xanax Tab*) 0.25 mg PO TID [facility] Last Admin: 04/30/19 07:48 Dose: 0.25 mg Budesonide/Formoterol Fumarate (Symbicort 160/4.5 (Nf)) 2 puff INH BID [facility] Last Admin: 04/30/19 07:48 Dose: 2 inh Clonidine HCl (Catapres Tab*) 0.1 mg PO BEDTIME JACQUIE Last Admin: 04/29/19 20:26 Dose: 0.1 mg Ezetimibe (Zetia Tab*) 10 mg PO QPM [facility] Last Admin: 04/29/19 17:26 Dose: 10 mg Heparin Sodium (Porcine) (Heparin Vial(*)) 5,000 units SUBCUT Q8HR [facility] Last Admin: 04/30/19 06:19 Dose: 5,000 units Ciprofloxacin/Dextrose (Cipro 400 Mg Ivpremix(*)) 400 mg in 200 mls @ 200 mls/ hr IVPB Q12H [facility]; Protocol Last Admin: 04/30/19 04:14 Dose: 200 mls/hr Metronidazole/Sodium Chloride (Flagyl 500 Mg Ivpb*) 500 mg in 100 mls @ 100 mls /hr IVPB Q8H [facility] Last Admin: 04/30/19 06:19 Dose: 100 mls/hr Lactated Ringer's (Lactated Ringers 1000 Ml Bag*) 1,000 mls @ 50 mls/hr IV PER RATE [facility] Morphine Sulfate (Morphine 10 Mg/Ml Vial (1 Ml)) 5 mg IV Q6H PRN PRN Reason: pain-severe Last Admin: 04/30/19 06:33 Dose: 5 mg Oxybutynin Chloride (Ditropan Tab*) 5 mg PO QPM [facility] Last Admin: 04/29/19 17:26 Dose: 5 mg Prochlorperazine Edisylate (Compazine Inj*) 5 mg IV Q6H PRN PRN Reason: NAUSEA/VOMITING Vital Signs - 8 hr 04/30/19 04/30/19 04/30/19 03:39 06:33 07:22 Temperature 98.8 F 98.4 F Pulse Rate 78 78 Respiratory 18 18 16 Rate Blood Pressure 113/57 111/55 (mmHg) O2 Sat by Pulse 94 94 Oximetry 04/30/19 04/30/19 04/30/19 07:30 07:48 08:00 Temperature Pulse Rate Respiratory 18 18 18 Rate Blood Pressure (mmHg) O2 Sat by Pulse Oximetry 04/30/19 09:45 Temperature Pulse Rate Respiratory 16 Rate Blood Pressure (mmHg) O2 Sat by Pulse Oximetry Oxygen Devices in Use Now: None Appearance: 73 yo F in nAD, aaOx3 Eyes: No Scleral Icterus, PERRLA Ears/Nose/Mouth/Throat: NL Teeth, Lips, Gums, Mucous Membranes Moist Neck: NL Appearance and Movements; NL JVP, Trachea Midline Respiratory: Symmetrical Chest Expansion and Respiratory Effort, Clear to Auscultation Cardiovascular: NL Sounds; No Murmurs; No JVD, RRR Abdominal: - - distended, diffuse mild tenderness, BM+, no rebound, no guarding Lymphatic: No Cervical Adenopathy Extremities: No Edema Skin: No Rash or Ulcers, No Nodules or Sclerosis Neurological: Alert and Oriented x 3, NL Muscle Strength and Tone Result Diagrams: 04/30/19 05:02 04/30/19 05:02 Assess/Plan/Problems-Billing Assessment: 73 yo F with dx of invasive ductal ca of breast in the past 3 weeks ( under the care of Dr. Ceja-oncology), with h/o partial colectomy due to diverticulitis, presents with acute diverticulitis - Patient Problems (1) Acute diverticulitis of intestine Comment: improving cont Cipro/Flagyl cliff advance diet to clears and lower IVF rate (2) Enlarged ovary Comment: ? related to breast ca dx COSME score labs pending, pt's oncologist aware (3) Anxiety Comment: chronic, controlled on home alprazolam (4) Anemia Comment: normocytic, likely dilutional, no signs of bleeding (5) DVT prophylaxis Status: Acute Comment: HSQ Status and Disposition: inpatient
[2019-04-30 10:26] LABS: C Reactive Protein 194.98 mg/L (<8.01)
[2019-04-30] MEDS: Ezetimibe TAB* 10 MG PO SCH (16:54)
[2019-04-30] MEDS: Oxybutynin TAB* 5 MG PO SCH (16:54)
[2019-04-30] MEDS: cloNIDine TAB* 0.1 MG PO SCH (21:49)
[2019-05-01] MEDS: Ciprofloxacin 400MG IVPREMIX(* 400 MG/200 ML BAG IVPB SCH (05:09)
[2019-05-01 05:55] LABS: ABS Eosinophils 0.1 10^3/ul (0-0.6); ABS Lymphocytes 0.8 10^3/ul (1.0-4.8); ABS Monocytes 0.4 10^3/ul (0-0.8); ABS Neutrophils 3.8 10^3/ul (1.5-7.7); Eosinophil % 2.4 %; Hematocrit 29 % (35-47); Hemoglobin 9.9 g/dL (12.0-16.0); Lymphocyte % 15.7 %; Mean Corpuscular HGB Conc 35 g/dL (31-36); Mean Corpuscular Hemoglobin 31 pg (27-31); Mean Corpuscular Volume 89 fL (80-97); Mean Platelet Volume 8.9 fL (7.4-10.4); Platelet Count 141 10^3/uL (150-450); Red Cell Distribution Width 13 % (10-15); White Blood Count 5.2 10^3/uL (3.5-10.8)
[2019-05-01 06:12] LABS: BUN/Creatinine Ratio 16.2 (8-20); C Reactive Protein 155.26 mg/L (<8.01); Calcium 8.4 mg/dL (8.6-10.3); EGFR African American 93.3 (>60); EGFR Non-African American 77.1 (>60); Potassium 3.5 mmol/L (3.5-5.0)
[2019-05-01] MEDS: metroNIDAZOLE IV 500 MG/100ML* 500 MG/100 ML BAG IVPB SCH ×2 (06:26→17:17)
[2019-05-01] MEDS: Heparin VIAL(*) 5000 UNITS/ML VIAL (FIVE THOUSAND) SUBCUT SCH ×2 (06:26→14:15)
[2019-05-01] MEDS: ALPRAZolam TAB* 0.25 MG PO SCH ×2 (09:27→14:14)
[2019-05-01] MEDS: PTO:Budesonide/Formote 160/4.5(NF) MDI INH SCH (09:29)
[2019-05-01 11:19] VITALS: BP 135/65
--- NOTE | 2019-05-01 22:44 | DS ---
CC: Dr. Delacruz; Dr. Sandra Hunt; Dr. Ceja, Hematology-Oncology * DISCHARGE SUMMARY: DATE OF ADMISSION: 04/29/19 DATE OF DISCHARGE: 05/01/19 PRIMARY CARE PROVIDER: Dr. Delacruz. DISPOSITION AT DISCHARGE: Home. CONDITION AT DISCHARGE: Stable. DISCHARGE DIAGNOSES: 1. Acute diverticulitis. 2. Recent diagnosis of breast cancer, with now CT showing enlargement of bilateral ovaries, to be followed up by the patient's embedded case manager. SECONDARY DIAGNOSES: 1. Status post right hemicolectomy for diverticulitis in 2003. 2. Hypertension. 3. Hyperlipidemia. MEDICATIONS AT DISCHARGE: Include: 1. Ciprofloxacin 500 mg p.o. b.i.d. for a total of 10 days. 2. Flagyl 500 mg p.o. 3 times a day for a total of 10 days. The remaining medications are unchanged and include: 1. Xanax 0.25 mg p.o. t.i.d. p.r.n. 2. Symbicort 160/4.5 one puff inhalation b.i.d. 3. Clonidine 0.1 mg at bedtime. 4. Zetia 10 mg daily. 5. Cozaar 25 mg daily. 6. Ditropan 5 mg q.p.m. 7. Simethicone 80 mg up to 4 times a day for gas. LABORATORY DATA AND STUDIES PERFORMED DURING THE HOSPITAL STAY: On 05/01/19, white blood cell count of 5.2, hemoglobin 9.9, hematocrit of 29, platelets 141. Sodium was 140, potassium 3.5, chloride 110, carbon dioxide 24, BUN 12, creatinine 0.74. CT abdomen and pelvis obtained at admission, impression: Diverticulitis without loculated fluid collection to suggest abscess. There is mucosal thickening of the sigmoid colon, which may be reflective of inflammatory change given the associated diverticulitis. Recommend followup imaging after resolution of acute symptoms. There is an abdominal enlargement of the ovaries bilaterally. Gastric malignancy differential includes metastatic disease to the ovaries. There was a small intrapelvic ascites. Atherosclerosis. There are low attenuation hepatic parenchymal lesions, which may represent hepatic cyst, though one is not clearly visualized on the noncontrast examination of 17/01. Laboratory data pending at time of dictation is ovarian malignancy risk certification lab work COSME that is still pending, but was sent out during the patient's hospital stay. HOSPITALIZATION COURSE: Ginette Smith is a 73-year-old female, who just was diagnosed with invasive ductal breast carcinoma within the past 3 weeks. She had a biopsy of her breast, but she is still waiting for final stain results and further workup. She saw Dr. Ceja from Oncology, who is guiding the patient through the treatment. She is planned to have an outpatient MRI of the breast performed soon. The patient suddenly developed abdominal pain. She came into the hospital and CT showed acute diverticulitis. The patient has a history of diverticulitis in 2003; she had a partial colectomy due to that. The patient was on admission treated with ciprofloxacin and Flagyl with good results. By the time of discharge, she was able to tolerate soft diet. She is still complained of abdominal distention and lots of "gas," but she has had fluctuance without any problems and she had no symptoms of bowel obstruction. The patient also requests to be discharged today, although she was offered to be observed on her diet for overnight due to that, but she is worried that her oncology appointments may be missed if she stays in the hospital longer. The patient is going to be discharged home on simethicone as well as ciprofloxacin and metronidazole for the next 10 days. She is recommended to follow up with Dr. Delacruz in approximately 4 to 7 days. She already has scheduled appointment with Dr. Javid Hunt and Dr. Ceja after her MRI comes back. PHYSICAL EXAM AT TIME OF DISCHARGE: Blood pressure 135/65, heart rate of 69 and regular, respiratory rate 16, oxygen saturation 98% on room air, temperature 98.6. General: The patient is very pleasant 73-year-old female, who is in no acute distress. The patient is alert and oriented x3. HEENT: Head: Atraumatic, normocephalic. Eyes: Pupils are equal and reactive to light and accommodation. Oropharynx is clear. Mucosa moist. Neck: Supple. No JVD. No bruit bilaterally. Cardiovascular: Regular rate and rhythm. No murmur. Respiratory: Clear to auscultation bilaterally. Abdomen is distended , soft, minimally tender diffusely and no rebound, no guarding, and bowel sounds are present in all 4 quadrants. Extremities: There is no edema. Pulses are 2+ bilaterally. There is no clubbing or cyanosis. The patient is recommended to continue with bland diet for the next 7 days and then to advance to regular as tolerated. Please note that this is a short summary of the patient's hospitalization. Please refer to further medical records for details. TIME SPENT: Approximately 55 minutes was spent on the patient's discharge. [id number] #: [id number] MTDD
== END 2019-05-01 15:51 | disposition home or self-care (01) | DRG 392 ==
LOC: ED 12:08 → SSU 15:04
PROVIDERS: ADMIT Internal Medicine; ATTEND Internal Medicine
DX: K57.32 Diverticulitis of large intestine without perforation or abscess without bleeding (principal); R18.8 Other ascites; I10 Essential (primary) hypertension; J44.9 Chronic obstructive pulmonary disease, unspecified; C50.911 Malignant neoplasm of unspecified site of right female breast; E78.5 Hyperlipidemia, unspecified; F41.9 Anxiety disorder, unspecified; N83.8 Other noninflammatory disorders of ovary, fallopian tube and broad ligament; D64.9 Anemia, unspecified; Z79.51 Long term (current) use of inhaled steroids; Z78.0 Asymptomatic menopausal state; Z88.2 Allergy status to sulfonamides; Z87.891 Personal history of nicotine dependence
CPT/HCPCS: 36415; 74177; 80048; 80053; 81003; 81015; 83690; 85025; 86140; 86304; 86305; 96374; 96375; 99284; A9270-GY; J0744; J0780; J1644; J2270; Q9967

== ENCOUNTER 2019-06-21 13:40 | Emergency (ER) | payer MEDICARE ==
--- OUTSIDE RECORDS SUMMARY | 2019-06-21 13:51 | XMS REPORT | Continuity of Care Document ---
:1945 External Reference #:[id number] Author Name Sandra Hunt MD (transmitted by agent of provider Devin Otero) Address [address] [facility] [place] [address] Care Team Providers Name Role Phone Ramon Delacruz MD - Family Care Team Information Reducing System Operator [phone] Medicine Problems Description No Information Available Social History Type Date Description Comments Sex Unknown ETOH Use Consumes 2 glasses of wine per day Tobacco Use Start: Unknown End: Patient is a former smoker quit 2003 Unknown Smoking Status Reviewed: 05/17/19 Patient is a former smoker quit 2003 Exercise Type/Frequency Does not exercise Allergies, Adverse Reactions, Alerts Active Allergies Reaction Severity Comments Date Sulfa Antibiotics childhood - unknown reaction 04/19/2019 Medications Active Medications SIG Qnty Indications Ordering Provider Date Losartan Potassium 2 tabs by mouth Unknown 25mg every day Tablets Oxybutynin Chloride ER 1 by [...] Available Vital Signs Date Vital Result Comment 05/17/2019 8:32am Heart Rate 72 /min BP Systolic Sitting 162 mmHg BP Diastolic Sitting 98 mmHg Respiratory Rate 18 /min Body Temperature 97.8 F 04/20/2019 1:16pm Height 61 inches 5'1" Weight 125.00 lb Heart Rate 66 /min BP Systolic Sitting 142 mmHg BP Diastolic Sitting 78 mmHg Respiratory Rate 16 /min Body Temperature 97.9 F BMI (Body Mass Index) 23.6 kg/m2 Results Test Acquired Date Facility Test Result H/L Range Note Surgical 2019 [facility] Surgical SEE RESULT 1, [address] [place] [address] [phone] PDFReport SEE IMAGE Laboratory test 05/11/2019 [facility] Point of Care 107 mg/dL High 70-100 [address] [place] [address] [phone] 1 [id number] 2 SEE RESULT BELOW Name: GINETTE SMITH : [address]: Sandra Hunt MD Acct: [id number] Unit: [id number] AGE: 74 Location: [facility] Re05/15/19 SEX: F Status: REG REF SPEC: [id number] DELFINO: 05/15/19-[address]: Sandra Hunt MD REQ: [id number] RECD: 05/15/19 STATUS: DICK BROWER DR: Wilson Link MD _ ORDERED: LEVEL 4/2 COMMENTS: [id number] FINAL DIAGNOSIS 1. Breast, left, first lesion, core biopsy: -- Invasive mammary adenocarcinoma of breast, with: Size: 6 mm span. Tumor extent and distribution: 2 small foci seen on one core occupying 15 % of tissue volume. Estimated Holland grade: Estimated tubule formation: 3. Estimated nuclear grade: 1. Estimated mitotic count: 1. Combined Holland histologic grade: 1/3. (5/9 points). Lymphovascular invasion: Not seen. Ductal Carcinoma in situ (DCIS): Present. Size: 2 mm. Extent and distribution: Single focus. Architectural pattern: Papillary. Nuclear grade: 2. Necrosis: Not seen. ER, NV, and Her2/Cherri by immunohistochemistry with appropriate controls: ER: Pending; results will be reported in an addendum. NV: Pending; results will be reported in an addendum. Her2/Cherri: Pending; results will be reported in an addendum. Microcalcifications: Not seen. Other findings: None. Predicted pTNM histopathologic stage: at least pT 1b. 2. Breast, left, second lesion, core biopsies: -- Ductal carcinoma in situ (DCIS), with: Size: 10 mm. Extent and distribution: Single contiguous focus noted. Architectural pattern: Papillary. CONTINUED ON NEXT PAGE DEPARTMENT OF PATHOLOGY, [address] [place] [address] Frank Aquino M.D. Director [facility] # [id number] Nuclear grade: 2. Necrosis: Not seen. Microcalcifications: Not seen. Microinvasion: Not identified. ER/NV by immunohistochemistry with appropriate controls: ER: Pending; results will be reported in an addendum. NV: Pending; results will be reported in an addendum. Other findings: Atypical papillomatosis. Predicted pTNM histopathologic stage: pTis. Comment: Additional studies for high molecular weight keratin and E-Cadherin are pending in part 1 and will be reported in an addendum. Dr. Matos has reviewed this case and concurs. PRE-OPERATIVE DIAGNOSIS Left breast complex masses at 3:00 GROSS DESCRIPTION 1. The specimen is received in formalin labeled, Left Breast First Lesion, and consists of a 1.8 x 0.4 x 0.4 cm aggregate of white-pink fibro-fatty soft tissue fragments, which is filtered and submitted entirely in one cassette. 2. The specimen is received in formalin labeled, Left Breast Second Lesion , and consists of a 2.0 x 0.4 x 0.4 cm yellow-pink fibrofatty soft tissue core, which is filtered and submitted entirely in one cassette. Signed by and Reported on: Frank Aquino MD 02/22 1051 END OF REPORT DEPARTMENT OF PATHOLOGY, [address] [place] [address] Frank Aquino M.D. Director [facility] # [id number] 3 Shadowgraph Scale Operator: [id number] Procedures Description No Information Available Medical Devices Description No Information Available Encounters Type Date Location Provider Dx Diagnosis Office Visit 04/30/2019 [facility] Sheila Hussein, K57.92 Dvtrcli of 10:49a Assjamarcus meadows M.D. intest, part Hospitalists unsp, w/o perf or abscess w/o bleed D64.9 Anemia, unspecified Office Visit 04/29/2019 10:49a [facility] Zina Glass, R10.9 Unspecified Assoc,pc N.P. abdominal pain Hospitalists R93.5 Abn findings on dx imaging of abd regions, inc retroperiton Office Visit 04/20/2019 1:00p Surgical Sandra Hua C50.311 [facility]ig [facility]m of [facility] Hunt MD lower-inner quadrant of right female breast Assessments Date Code Description Provider 05/17/2019 C50.912 Malignant neoplasm of unspecified site of Sandra Hunt MD left female breast 05/17/2019 C50.311 Malignant neoplasm of lower-inner quadrant of Sandra Hunt MD right female breast 04/30/2019 K57.92 Diverticulitis of intestine, part Sheila Hussein M.D. unspecified, without perforation or abscess without bleeding 04/30/2019 D64.9 Anemia, unspecified Sheila Hussein M.D. 04/29/2019 R10.9 Unspecified abdominal pain Zina Glass N.P. 04/29/2019 R93.5 Abnormal findings on diagnostic imaging of Zina Glass N.P. other abdominal regions, including retroperitoneum 04/20/2019 C50.311 Malignant neoplasm of lower-inner quadrant of Sandra Hunt MD right female breast Plan of Treatment Future Appointment(s):06/21/2019 11:00 am - Darlene Ordonez NP at [facility]06/09/2019 10:00 am - KAIT Vanessa at [facility]06/09/2019 10:00 am - Sandra Hunt MD at [facility]05/17/2019 - Sandra Hunt, MDC50.912 Malignant neoplasm of unspecified site of left female jyeowxN07.311 Malignant neoplasm of lower-inner quadrant of right female breast Functional Status Description No Information Available Mental Status Description No Information Available Referrals Description No Information Available
--- OUTSIDE RECORDS SUMMARY | 2019-06-21 13:51 | XMS REPORT | Continuity of Care Document ---
:1945 External Reference #:[id number] Author Name VANESSA Caputo Address [address] [place] [address] Care Team Providers Name Role Phone Ramon Delacruz MD - Family Medicine Care Team Information Special Technical Operations Officer Gilbert Beltran MD - Surgery Care Team Information Special Technical Operations Officer [phone] Cristiana Senior PA-C - Care Team Information Special Technical Operations Officer [phone] Gastroenterology Problems Active Problems Provider Date Needs influenza immunization Ramon Delacruz M.D. Onset: 01/15/2007 Chronic obstructive lung disease Ramon Delacruz M.D. Onset: 09/18/2008 Anxiety state Ramon Delacruz M.D. Onset: 09/18/2008 Diarrhea Delia Burris M.D. Onset: 04/27/2011 Restless legs Ramon Delacruz M.D. Onset: 01/04/2012 Mixed hyperlipidemia Ramon Delacruz M.D. Onset: 01/20/2017 Essential hypertension Ramon Delacruz M.D. Onset: 03/13/2015 Hemoptysis Ramon Delacruz M.D. Onset: 03/13/2015 Vitamin D deficiency Ramon Delacruz M.D. Onset: 01/03/2014 Osteoporosis Ramon Delacruz M.D. Onset: 01/03/2014 Social History Type Date Description Comments Sex Unknown Tobacco Use Start: 04/05/61 End: Nonsmoker quit 2003; 1 pk/day 04/05/03 smoker in the past Tobacco Use Start: Unknown End: Patient is a former smoker Unknown Smoking Status Reviewed: 05/16/19 Patient is a former smoker Allergies, Adverse Reactions, Alerts Active Allergies Reaction Severity Comments Date Sulfa Drugs Medications Active Medications SIG Qnty Indications Ordering Provider Date Losartan Potassium 1 by mouth twice 90Tablet I10 Ramon Delacruz, 2018 a day M.D. 25mg Tablets Oxybutynin Chloride 1 by mouth once 30tabs N39.41 Ramon Delacruz, 2018 ER a day M.D. 5mg Tablets ER 24HR Ezetimibe 1 by mouth once 90tabs Ramon Delacruz, 05/06/2018 10mg a day M.D. Tablets Clonidine HCL 1 by mouth at 90tabs N95.1 Ramon Delacruz, 01/20/2017 0.1mg bedtime M.D. Tablets Symbicort 2 puff twice a 30.6gm J44.9 Herbert T. 01/08/2015 day MD Indu 160-4.5mcg/Act Aerosol Xanax 1 by mouth three 90tabs F41.9 Ramon Delacruz, 05/06/2004 0.25mg Tablets times a day as M.D. needed History Medications Betamethasone apply to affected 45gm R21 Lilly Francesca 03/17/2019 - Dipropionate area twice a day LAMONT Melvin 03/24/2019 0.05% Cream Medications Administered in Office Medication SIG Qnty Indications Ordering Provider Date TB Intradermal Test Ramon Delacruz M.D. 02/23/2006 Injection Injection Subcutaneous Or Ramon Delacruz M.D. 01/19/2000 Intramuscular Injection Immunizations CPT Code Status Date Vaccine Lot # [id number] Given 12/11/2017 High-Dose, Influenza Virus Vacccine-fluzone 65 and older 16144 Given 01/20/2017 Tetanus And Diptheria Adult Preservative Free [id number] >7Yrs 85378 Given 12/10/2016 High-Dose, Influenza Virus Vacccine-fluzone 65 and older 79119 Given 01/01/2016 High-Dose, Influenza Virus Vacccine-fluzone 65 and older 10902 Given 01/09/2015 Pneumococcal Immunization 36393 Given 01/07/2015 Influenza Vac, Quadriv[place], [place] [address] Given 01/07/2015 High-Dose, Influenza Virus Vacccine-fluzone 65 and older 81609 Given 04/02/2014 Zostivax [id number] 38573 Given 01/08/2014 DO Not Use Split Influenza Virus Vaccine 04366 Given 12/11/2012 DO Not Use Split Influenza Virus Vaccine 39464 Given 12/25/2011 Pneumococcal Immunization 91735 Given 12/25/2011 DO Not Use Split Influenza Virus Vaccine 71830 Given 01/07/2011 DO Not Use Split Influenza Virus Vaccine 81124 Given 02/09/2008 DO Not Use Split Influenza Virus Vaccine [id number] 03529 Given 01/15/2007 DO Not Use Split Influenza Virus Vaccine [id number] 93465 Given 05/21/2006 DO Not Use Split Influenza Virus Vaccine [id number] 33382 Given 01/28/2005 DO Not Use Split Influenza Virus Vaccine 99006 Given 03/31/2002 DO Not Use Split Influenza Virus Vaccine Vital Signs Date Vital Result Comment 05/16/2019 1:03pm BP Systolic 150 mmHg BP Diastolic 72 mmHg BP Systolic Recheck 180 mmHg BP Diastolic Recheck 96 mmHg Heart Rate 64 /min Body Temperature 97.7 F Respiratory Rate 16 /min O2 % BldC Oximetry 98 % Weight 125.12 lb shoes on 04/29/2019 11:16am BP Systolic 166 mmHg BP Diastolic 96 mmHg Heart Rate 84 /min Body Temperature 98.1 F Weight 127.00 lb Results Test Acquired Date Facility Test Result H/L Range Note Laboratory test 05/24/2019 [facility] ([facility] SEE ATTACHED finding Test Laboratory test 05/11/2019 [facility] Point of 107 mg/dL High 70-100 1 finding Care Glucose CBC Auto Diff 04/29/2019 [facility] White Blood 13.8 10^3/uL High 3.5-10.8 Count Red Blood Count 4.36 10^6/uL Normal 3.70-4.87 Hemoglobin 13.3 g/dL Normal 12.0-16.0 Hematocrit 39 % Normal 35-47 Mean Corpuscular Volume 90 fL Normal 80-97 Mean Corpuscular Hemoglobin 31 pg Normal 27-31 Mean Corpuscular HGB Conc 34 g/dL Normal 31-36 Red Cell Distribution Width 13 % Normal 10-15 Platelet Count 182 10^3/uL Normal 150-450 Mean Platelet Volume 9.4 fL Normal 7.4-10.4 Abs Neutrophils 12.0 10^3/uL High 1.5-7.7 Abs Lymphocytes 0.9 10^3/uL Low 1.0-4.8 Abs Monocytes 0.8 10^3/uL Normal 0-0.8 Abs Eosinophils 0.0 10^3/uL Normal 0-0.6 Abs Basophils 0.1 10^3/uL Normal 0-0.2 Abs Nucleated RBC 0.0 10^3/uL Granulocyte % 87.0 % Lymphocyte % 6.5 % Monocyte % 5.8 % Eosinophil % 0.2 % Basophil % 0.5 % Nucleated Red Blood Cells % 0.0 Comp Metabolic Panel 04/29/2019 [facility] Sodium 136 mmol/L Normal 135-145 Potassium 3.9 mmol/L Normal 3.5-5.0 Chloride 104 mmol/L Normal 101-111 Co2 Carbon Dioxide 24 mmol/L Normal 22-32 Anion Gap 8 mmol/L Normal 2-11 Glucose 116 mg/dL High 70-100 Blood Urea Nitrogen 17 mg/dL Normal 6-24 Creatinine 0.80 mg/dL Normal 0.51-0.95 BUN/Creatinine Ratio 21.3 High 8-20 Calcium 9.5 mg/dL Normal 8.6-10.3 Total Protein 6.8 g/dL Normal 6.4-8.9 Albumin 4.1 g/dL Normal 3.2-5.2 Globulin 2.7 g/dL Normal 2-4 Albumin/Globulin Ratio 1.5 Normal 1-3 Total Bilirubin 0.80 mg/dL Normal 0.2-1.0 Alkaline Phosphatase 109 U/L High 34-104 Alt 11 U/L Normal 7-52 Ast 11 U/L Low 13-39 Egfr Non- 70.5 >60 Egfr 85.3 >60 2 Laboratory test finding 04/29/2019 [facility] Lipase 14 U/L Normal 11.0-82.0 Urinalysis Profile 04/29/2019 [facility] Urine Color Straw Urine Appearance Clear Urine Specific [place] 1.036 High 1.010-1.030 Urine pH 6.0 Normal 5-9 Urine Urobilinogen Negative Negative Urine Ketones Trace Abnormal Negative Urine Protein Negative Negative Urine Leukocytes Negative Negative Urine Blood 2+ Abnormal Negative Urine Nitrite Negative Negative Urine Bilirubin Negative Negative Urine Glucose Negative Negative Urine White Blood Cell Absent Absent Urine Red Blood Cell Trace(0-2/hpf) Absent Urine Bacteria Absent Absent Urine Squamous Epithelial Cell Present Abnormal Absent Basin (Ovarian Malignancy Risk) 04/29/2019 [facility] He4,S (Cosme) 84 pmol/L <= 140 Cancer Ag (CA 125), S Basin 25 U/mL <46 Risk Score, if premenopausal 2.22 3 Risk Score, if postmenopausal 2.45 4 Laboratory test finding 04/13/2019 [facility] Surgical Pathology SEE RESULT BELOW 5, 6 1 Orthopedic Cast Specialist: [id number] 2 Because ethnic data is not always readily available, this report includes an eGFR for both -Americans and non- Americans. The National Kidney Disease Education Program (NKDEP) does not endorse the use of the MDRD equation for patients that are not between the ages of 18 and 70, are , have extremes of body size, muscle mass, or nutritional status, or are non- or non-. According to the National Kidney Foundation, irrespective of diagnosis, the stage of the disease is based on the level of kidney function: Stage Description GFR(mL/min/1.73 m(2)) 1 Kidney damage with normal or decreased GFR 90 2 Kidney damage with mild decrease in GFR 60-89 3 Moderate decrease in GFR 30-59 4 Severe decrease in GFR 15-29 5 Kidney failure <15 (or dialysis) 3 In premenopausal women a COSME value > or = 1.14 indicates a high risk of finding epithelial ovarian cancer whereas a COSME value < 1.14 indicates a low risk of finding epithelial ovarian cancer at surgery. REFERENCE VALUE Premenopausal: < 1.14 (low risk) = or > 1.14 (high risk) 4 In postmenopausal women a COSME value > or = 2.99 indicates a high risk of finding epithelial ovarian cancer whereas a COSME value < 2.99 indicates a low risk of finding epithelial ovarian cancer at surgery. REFERENCE VALUE Postmenopausal: < 2.99 (low risk) = or > 2.99 (high risk) ADDITIONAL INFORMATION The testing method is an electrochemiluminescence assay manufactured by [employer] and performed on the Pravin system. Values obtained with different assay methods or kits may be different and cannot be used interchangeably. Test results cannot be interpreted as absolute evidence for the presence or absence of malignant disease. Test Performed by: [facility] [address] [place] [address] Software Engineer Developer: Evgeny Pichardo M.D. Ph.D.; CLIA# [id number] 5 [id number] SEE RESULT BELOW Name: GINETTE SMITH : [address]: Lilly Melvin NP Acct: [id number] Unit: [id number] AGE: 73 Location: [facility] Re04/13/19 SEX: F Status: REG REF SPEC: [id number] DELFINO: 04/13/19- SUBM DR: Buster Gibson MD REQ: [id number] RECD: 04/13/19-1554 STATUS: DICK BROWER DR: Lilly Melvin NP _ ORDERED: LEVEL 4, IMMUNO-FIRST, IMMUNO-ADDL, IMMUNO-QUANT/3 COMMENTS: [id number] ADDENDUM Immunohistochemical stains, with appropriately reacting controls, were performed with the following results: ER strongly positive, nearly 100% MT strongly positive, nearly 100% HER-2/cherri negative (1+) HMWCK positive E-Cadherin focally weakly positive 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 Addendum Signed (signature on file) Sandra Matos MD 1341 FINAL DIAGNOSIS Breast, right, core biopsies: -- Invasive mammary adenocarcinoma of breast, with: Size: 7 mm greatest single measured span. Tumor extent and distribution: Tumor involves 2 of 2 cores and occupies 60 % of tissue volume. Estimated Sue grade: Estimated tubule formation: 3. Estimated nuclear grade: 2. Estimated mitotic count: 1. Combined [place] histologic grade: 2/3. (6/9 points). Lymphovascular invasion: Not seen. Ductal Carcinoma in situ (DCIS): Present. CONTINUED ON NEXT PAGE DEPARTMENT OF PATHOLOGY, [address] [place] [address] Frank Aquino M.D. Director [facility] # [id number] Size: 3 mm maximal span. Extent and distribution: Seen in association with invasive carcinoma. Architectural pattern: Solid. Nuclear grade: 2. Necrosis: Not seen. ER, MT, and Her2/Cherri by immunohistochemistry with appropriate controls: ER: Pending; results will be reported in an addendum. MT: Pending; results will be reported in an addendum. Her2/Cherri: Pending; results will be reported in an addendum. Microcalcifications: Not seen. Other findings: None. Predicted pTNM histopathologic stage: at least pT 1b. Comment: The morphologic features indicate a differential diagnosis including ductal carcinoma with lobular growth pattern of versus pleomorphic lobular carcinoma of breast. In histochemical stains for E-Cadherin and high molecular weight keratin in addition to hormone receptor studies are pending and will be reported in an addendum. PRE-OPERATIVE DIAGNOSIS Right breast mass solid lesion 5:00, 3 cm from nipple GROSS DESCRIPTION The specimen is received in formalin labeled, Right Breast, and consists of two yellow-white fibrofatty soft tissue cores averaging 1.4 x 0.3 cm which are submitted entirely in one cassette. Signed by and Reported on: Frank Aquino MD 01/22 1107 END OF REPORT DEPARTMENT OF PATHOLOGY, [address] [place] [address] Frank Aquino M.D. Director [facility] # [id number] Procedures Date Code Description Status 04/14/2019 [id number] Mammogram Completed 04/13/2019 [id number] Mammogram Completed 03/17/2019 [id number] Mammogram Completed 03/14/2018 [id number] Mammogram Completed 03/13/2017 [id number] Mammogram Completed 03/05/2016 [id number] Mammogram Completed 03/04/2015 [id number] Mammogram Completed 08/29/2014 [id number] Colonoscopy Completed 03/01/[id number] Mammogram Completed 08/03/2012 [id number] Bone Mineral Density Test Completed 02/29/2012 [id number] Mammogram Completed 02/23/2011 [id number] Mammogram Completed 08/19/2009 [id number] Mammogram Completed 02/04/2009 [id number] Mammogram Completed 07/31/2008 [id number] Mammogram Completed 02/02/2008 [id number] Mammogram Completed 01/31/2007 [id number] Mammogram Completed 01/28/2006 [id number] Mammogram Completed Medical Devices Description No Information Available Encounters Type Date Location Provider Dx Diagnosis Office Visit 05/16/2019 [facility][1] Office [place], I10 Essential ( primary) 1:00p PA hypertension Office Visit 04/29/2019 [facility][1] Office Lilly Ma R10.9 Unspecified 11:00a LAMONT Melvin abdominal pain I10 Essential (primary) hypertension Office Visit 03/24/2019 3:30p [facility][1] Office Sofi Poe R21 Rash and vivek iNx M.D. nonspecific skin eruption Office Visit 03/17/2019 2:45p [facility][1] Office Lilly Ma R21 Rash and other LAMONT Melvin nonspecific skin eruption D48.61 Neoplasm of uncertain behavior of right breast Assessments Date Code Description Provider 06/20/2019 K59.00 Constipation, unspecified Sandra Baltazar, COMPUTER SYSTEM TECHNICIAN 05/16/2019 I10 Essential (primary) hypertension [address] 04/29/2019 R10.9 Unspecified abdominal pain Lilly Melvin NP 04/29/2019 I10 Essential (primary) hypertension Lilly Melvin NP 03/24/2019 R21 Rash and other nonspecific skin eruption Sofi Nix M.D. 03/17/2019 R21 Rash and other nonspecific skin eruption Lilly Melvin NP 03/17/2019 D48.61 Neoplasm of uncertain behavior of right Lilly Melvin NP breast Plan of Treatment 06/20/2019 - Sandra Baltazar, FNPK59.00 Constipation, unspecifiedComments: advised fleets/glycerin suppository, must produce bowel movement by morning will call patient and check in Functional Status Description No Information Available Mental Status Description No Information Available Referrals Description No Information Available
--- OUTSIDE RECORDS SUMMARY | 2019-06-21 13:51 | XMS REPORT | Continuity of Care Document ---
:1945 External Reference #:[id number] Author Name [address] Address [address] [place] [address] Care Team Providers Name Role Phone Ramon Delacruz MD - Family Medicine Care Team Information Outdoor Advertising Leasing Agent Gilbert Beltran MD - Surgery Care Team Information Outdoor Advertising Leasing Agent Cristiana Senior-Arnold - Care Team Information Outdoor Advertising Leasing Agent [phone] Gastroenterology Problems Active Problems Provider Date Needs [...] Symbicort 2 puff twice a 30.6gm J44.9 Ramon Delacruz, 01/08/2015 day M.D. 160-4.5mcg/Act Aerosol Xanax 1 by mouth three 90tabs F41.9 Ramon Delacruz, 05/06/2004 0.25mg Tablets times a day as M.D. needed History Medications Betamethasone apply to affected 45gm R21 Lilly Ma 03/17/2019 - Dipropionate area twice a day LAMONT Melvin 03/24/2019 0.05% Cream Medications Administered in Office Medication SIG Qnty Indications Ordering Provider Date TB Intradermal Test Ramon Delacruz M.D. 02/23/2006 Injection Injection Subcutaneous Or Ramon Delacruz M.D. 01/19/2000 Intramuscular Injection Immunizations CPT Code Status Date Vaccine Lot # [id number] Given 12/11/2017 High-Dose, Influenza Virus Vacccine-fluzone 65 and older 67260 Given 01/20/2017 Tetanus And Diptheria Adult Preservative Free [id number] >7Yrs 20958 Given 12/10/2016 High-Dose, Influenza Virus Vacccine-fluzone 65 and older 73598 Given 01/01/2016 High-Dose, Influenza Virus Vacccine-fluzone 65 and older 56367 Given 01/09/2015 Pneumococcal Immunization 52713 Given 01/07/2015 Influenza Vac, Quadriv[place], [place] [address] Given 01/07/2015 High-Dose, Influenza Virus Vacccine-fluzone 65 and older 17112 Given 04/02/2014 Zostivax [id number] 48518 Given 01/08/2014 DO Not Use Split Influenza Virus Vaccine 34299 Given 12/11/2012 DO Not Use Split Influenza Virus Vaccine 25311 Given 12/25/2011 Pneumococcal Immunization 84447 Given 12/25/2011 DO Not Use Split Influenza Virus Vaccine 10253 Given 01/07/2011 DO Not Use Split Influenza Virus Vaccine 74870 Given 02/09/2008 DO Not Use Split Influenza Virus Vaccine [id number] 26848 Given 01/15/2007 DO Not Use Split Influenza Virus Vaccine [id number] 33547 Given 05/21/2006 DO Not Use Split Influenza Virus Vaccine [id number] 74399 Given 01/28/2005 DO Not Use Split Influenza Virus Vaccine 24172 Given 03/31/2002 DO Not Use Split Influenza [...] Test Result H/L Range Note Laboratory test 05/11/2019 [facility] [place] Point of Care 107 mg/dL High 70-100 1 finding Glucose CBC Auto Diff 04/29/2019 [facility] [place] White Blood 13.8 10^3/uL High 3.5-10.8 Count [...] Cells % 0.0 Comp Metabolic Panel 04/29/2019 [facility] [place] Sodium 136 mmol/L Normal 135-145 Potassium 3.9 [...] 85.3 >60 2 Laboratory test finding 04/29/2019 [facility] Lipase 14 U/L Normal 11.0-82.0 Urinalysis Profile 04/29/2019 [facility] [place] Urine Color Straw Urine Appearance Clear Urine Specific Wall 1.036 High 1.010-1.030 Urine pH 6.0 Normal [...] Urine Squamous Epithelial Cell Present Abnormal Absent [place] (Ovarian Malignancy Risk) 04/29/2019 [facility] He4,S (Cosme) 84 pmol/L <= 140 Cancer Ag (CA 125), S Cosme 25 U/mL <46 Risk Score, if premenopausal 2.22 3 Risk Score, if postmenopausal 2.45 4 Laboratory test finding 04/13/2019 [facility] [place] Surgical Pathology SEE RESULT BELOW 5, 6 1 Annealing Oven Operator: [id number] 2 Because ethnic data is not always [...] absence of malignant disease. Test Performed by: [facility] [address] [place] [address] Camp Program Director: Evgeny Pichardo M.D. Ph.D.; CLIA# [id number] SEE RESULT BELOW Name: GINETTE SMITH : [address]: Lilly Melvin NP Acct: [id number] Unit: [id number] AGE: 73 Location: [facility] Re04/13/19 SEX: F Status: REG REF SPEC: [id number] DELFINO: 04/13/19- SUBM DR: Buster Gibson MD REQ: [id number] RECD: 04/13/19-1554 STATUS: DICK BROWER DR: Lilly Melvin CLEARANCE DIVER _ ORDERED: LEVEL 4, IMMUNO-FIRST, IMMUNO-ADDL, IMMUNO-QUANT/3 COMMENTS: [id number] ADDENDUM Immunohistochemical stains, with appropriately reacting controls, were performed with the following results: ER strongly positive, nearly 100% NV strongly positive, nearly 100% HER-2/cherri negative (1+) [...] occupies 60 % of tissue volume. Estimated [place] grade: Estimated tubule formation: 3. Estimated nuclear grade: 2. Estimated mitotic count: 1. Combined [place] histologic grade: 2/3. (6/9 points). Lymphovascular invasion: Not seen. Ductal Carcinoma in situ (DCIS): Present. CONTINUED ON NEXT PAGE DEPARTMENT OF PATHOLOGY, [address] [place] [address] Frank Aquino M.D. Director [facility] # [id number] Size: 3 mm maximal span. Extent and [...] 1107 END OF REPORT DEPARTMENT OF PATHOLOGY, [address] [place] [address] Frank Aquino M.D. Director [facility] # [id number] Procedures Date Code Description Status 04/14/2019 [id number] Mammogram Completed 04/13/2019 [id number] Mammogram Completed 03/17/2019 [id number] Mammogram Completed 03/14/2018 [id number] Mammogram Completed 03/13/2017 [id number] Mammogram Completed 03/05/2016 [id number] Mammogram Completed 03/04/2015 [id number] Mammogram Completed 08/29/2014 [id number] Colonoscopy Completed 03/01/2013 [id number] Mammogram Completed 08/03/2012 [id number] Bone Mineral Density Test Completed 02/29/201285992489 Mammogram Completed 02/23/2011 [id number] Mammogram Completed 08/19/2009 [id number] Mammogram Completed 02/04/2009 [id number] Mammogram Completed 07/31/2008 [id number] Mammogram Completed 02/02/2008 [id number] Mammogram Completed 01/31/2007 [id number] Mammogram Completed 01/28/2006 [id number] Mammogram Completed Medical Devices Description No Information Available Encounters Type Date Location Provider Dx Diagnosis Office Visit 04/29/2019 [facility] Lilly Ma R10.9 Unspecified 11:00a LAMONT Melvin abdominal pain I10 Essential (primary) hypertension Office Visit 03/24/2019 3:30p [facility] Sofi Poe R21 Rash and other Nini Nix nonspecific skin eruption Office Visit 03/17/2019 2:45p [facility] Lilly Ma R21 Rash and other LAMONT Melvin nonspecific skin eruption 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 03/17/2019 R21 Rash and other nonspecific skin eruption Lilly Melvin NP 03/17/2019 D48.61 Neoplasm of uncertain behavior of right Lillyluis Melvin , CLEARANCE DIVER breast 12/14/2018 I10 Essential (primary) hypertension Ramon Delacruz M.D. 11/23/2018 I10 Essential (primary) hypertension Ramon Delacruz M.D. 11/23/2018 K92.1 Melena Ramon Delacruz M.D. Plan of Treatment Future Appointment(s):05/29/2019 1:30 pm - [address] at [facility] Njugsg1705/16/[address] Essential (primary) hypertensionComments:Increase losartan to 50 mg.ER with any chest pain, trouble breathing, leg swelling. Return in 1 weekto follow up.AllComments: PCMHMedication Management Patient Understands medications he's taking? Yes Are there Barriers to Adherence? No Has the patient been asked about herbal supplements and therapies, and OTC meds? Yes Care Plan1. Patient has been queried about patient's goals/preferences and functional/ lifestyle goals at relevant visits. Yes If relevant, describe: N/A2. Treatment goals as explained to the patient: above3. Are there barriers to meeting treatment goals? No If Yes, please describe:4. Self-Management goals as described to the patient: Yes As always, we strongly encourage a healthy diet and making physical activity a part of your every day life. If you have questions about how or where to start, please contact the office. Functional Status Description No Information Available Mental Status Description No Information Available Referrals Refer to Reason for Referral Status Appt Date Cristiana Senior PA-C (ER Follow up) elie Scheduled [facility] [place] [address] [phone]
[2019-06-21 14:44] LABS: ABS Lymphocytes 0.7 10^3/ul (1.0-4.8); ABS Monocytes 0.5 10^3/ul (0-0.8); ABS Neutrophils 9.1 10^3/ul (1.5-7.7); Eosinophil % 0.4 %; Hematocrit 40 % (35-47); Lymphocyte % 6.9 %; Mean Corpuscular HGB Conc 35 g/dL (31-36); Mean Corpuscular Hemoglobin 31 pg (27-31); Mean Corpuscular Volume 90 fL (80-97); Mean Platelet Volume 9.4 fL (7.4-10.4); Platelet Count 218 10^3/uL (150-450); Red Blood Count 4.46 10^6 /uL (3.70-4.87); Red Cell Distribution Width 14 % (10-15); White Blood Count 10.3 10^3/uL (3.5-10.8)
[2019-06-21 14:58] LABS: ALT 21 U/L (7-52); AST 16 U/L (13-39); Albumin 4.3 g/dL (3.2-5.2); Albumin/Globulin Ratio 1.4 (1-3); Alkaline Phosphatase 98 U/L (34-104); Anion Gap 10 mmol/L (2-11); BUN/Creatinine Ratio 22.4 (8-20); Blood Urea Nitrogen 19 mg/dL (6-24); CO2 Carbon Dioxide 24 mmol/L (22-32); Calcium 9.9 mg/dL (8.6-10.3); Chloride 102 mmol/L (101-111); EGFR African American 79.3 (>60); EGFR Non-African American 65.6 (>60); Glucose 121 mg/dL (70-100); Potassium 4.1 mmol/L (3.5-5.0); Sodium 136 mmol/L (135-145); Total Protein 7.3 g/dL (6.4-8.9)
--- NOTE | 2019-06-21 17:38 | ED ---
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 Patient states she has been taking senna, Colace, other laxatives for relief of her symptoms with no success. Patient states she has not had a bowel movement since her surgery however she has been passing gas. Patient states regularly she would have at least one bowel movement the day prior to her surgery. Patient otherwise is well and denies fever, chest pain, shortness of breath, nausea, vomiting, diarrhea. - History of Current Complaint Chief Complaint: EDConstipation Stated Complaint: ABDOMINAL PAIN PER PT Time Seen by Provider: 06/21/19 17:31 Hx Obtained From: Patient Onset/Duration: Gradual Onset Timing: Constant Severity Initially: Mild Severity Currently: Severe Pain Intensity: 10 Pain Scale Used: 0-10 Numeric Location: Diffuse Radiates: Yes Radiates to: Flank Character: Cramping Alleviating Factor(s): Bowel Movement Associated Signs and Symptoms: Positive: Constipation Allergies/Adverse Reactions: Allergies Allergy/AdvReac Type Severity Reaction Status Date / Time Sulfa (Sulfonamide Allergy Unknown Verified 06/21/19 13:52 Antibiotics) Reaction Details Home Medications: Home Medications Budesonide/Formote 160/4.5(NF) [Symbicort 160/4.5 (NF)] 2 puff INH BID 04/14/14 [History Confirmed 05/15/19] ALPRAZolam TAB* [Xanax TAB*] 0.25 mg PO TID 11/10/18 [History Confirmed 05/15/19 ] Ezetimibe TAB* [Zetia TAB*] 10 mg PO QPM 11/10/18 [History Confirmed 05/15/19] Oxybutynin TAB* [Ditropan TAB*] 5 mg PO QPM 11/10/18 [History Confirmed 05/15/19 ] cloNIDine TAB* [Catapres 0.1 MG TAB*] 0.1 mg PO BEDTIME 11/10/18 [History Confirmed 05/15/19] Losartan TAB* [Cozaar TAB*] 25 mg PO QAM 03/17/19 [History Confirmed 05/15/19] Simethicone TAB* [Mylicon TAB*] 80 mg PO ACHS PRN #20 tab.chew 05/01/19 [Rx Confirmed 05/15/19] Magnesium CITRATE* [Citrate of Magnesia*] 150 ml PO ONCE #1 btl 06/21/19 [Rx] PMH/Surg Hx/FS Hx/Imm Hx Endocrine/Hematology History: Denies: Hx Diabetes, Hx Thyroid Disease Cardiovascular History: Reports: Hx Hypercholesterolemia, Hx Hypertension Denies: Hx Pacemaker/ICD Respiratory History: Reports: Hx Chronic Obstructive Pulmonary Disease (COPD) Denies: Hx Asthma GI History: Denies: Hx Ulcer History: Reports: Other Problems/Disorders - bladder spasms Denies: Hx Dialysis, Hx Renal Disease Sensory History: Reports: Hx Contacts or Glasses Denies: Hx Legally Blind, Hx Hearing Aid Opthamlomology History: Reports: Hx Contacts or Glasses Denies: Hx Legally Blind Psychiatric History: Denies: Hx Panic Disorder - Cancer History Cancer Type, Location and Year: possible breast CA and ovarian CA - being worked up Hx Chemotherapy: No Hx Radiation Therapy: No - Surgical History Surgery Procedure, Year, and Place: Partial Hysterectomy 1979. Breast biopsies. Bowel Resection 2003 Infectious Disease History: No Infectious Disease History: Denies: Hx Hepatitis, Hx Human Immunodeficiency Virus (HIV), Traveled Outside the [place] in Last 30 Days Comment Only: Hx Shingles - vaccine 04/02/14 - Family History Known Family History: Positive: Other - breat malignancy , Non-Contributory - Social History Alcohol Use: Occasionally Alcohol Amount: 1-2 glasses of wine Substance Use Type: Reports: None Smoking Status (MU): Former Smoker Have You Smoked in the Last Year: No Review of Systems Constitutional: Negative Eyes: Negative ENT: Negative Cardiovascular: Negative Respiratory: Negative Positive: Abdominal Pain, Diarrhea Genitourinary: Negative Musculoskeletal: Negative Skin: Negative Neurological/Mental Status: Negative Psychological: Normal All Other Systems Reviewed And Are Negative: Yes Physical Exam - Summary Physical Exam Summary: Rectal exam was chaperoned by Mitchell Hernandez RN There is no evidence of stool in the rectal vault with digital rectal exam or considerable impaction noted. No evidence of bleeding or melena. Triage Information Reviewed: Yes Vital Signs On Initial Exam: Initial Vitals Temp Pulse Resp BP Pulse Ox 98.9 F 85 16 180/110 98 06/21/19 13:47 06/21/19 13:47 06/21/19 13:47 06/21/19 13:47 06/21/19 13:47 Vital Signs Reviewed: Yes Appearance: Positive: Well-Appearing, No Pain Distress, Well-Nourished Skin: Positive: Warm, Skin Color Reflects Adequate Perfusion Eyes: Positive: EOMI, ROSE ENT: Positive: Hearing grossly normal Respiratory/Lung Sounds: Positive: Clear to Auscultation, Breath Sounds Present Cardiovascular: Positive: RRR, S1, S2 Abdomen Description: Positive: Soft, Distended. Negative: Guarding, McBurney's Point Tenderness, Peritoneal Signs Bowel Sounds: Positive: Present Musculoskeletal: Positive: Strength/ROM Intact Neurological: Positive: Sensory/Motor Intact, Alert, Oriented to Person Place, Time, Normal Gait, Facial Symmetry, Speech Normal Psychiatric: Positive: Normal, Affect/Mood Appropriate AVPU Assessment: Alert Procedures - Sedation Patient Received Moderate/Deep Sedation with Procedure: No Diagnostics - Vital Signs Vital Signs Temp Pulse Resp BP Pulse Ox 06/21/19 15:37 98.9 F 77 16 194/90 98 06/21/19 13:47 98.9 F 85 16 180/110 98 - Laboratory Lab Results: Lab Results 06/21/19 06/21/19 06/21/19 Range/Units 14:29 14:30 14:30 WBC 10.3 (3.5-10.8) 10^3/uL RBC 4.46 (3.70-4.87) 10^6 /uL Hgb 14.0 (12.0-16.0) g/dL Hct 40 (35-47) % MCV 90 (80-97) fL MCH 31 (27-31) pg MCHC 35 (31-36) g/dL RDW 14 (10-15) % Plt Count 218 (150-450) 10^3/uL MPV 9.4 (7.4-10.4) fL Neut % (Auto) 87.9 % Lymph % (Auto) 6.9 % Holt % (Auto) 4.5 % Eos % (Auto) 0.4 % Baso % (Auto) 0.3 % Absolute Neuts (auto) 9.1 H (1.5-7.7) 10^3/ul Absolute Lymphs (auto) 0.7 L (1.0-4.8) 10^3/ul Absolute Monos (auto) 0.5 (0-0.8) 10^3/ul Absolute Eos (auto) 0.0 (0-0.6) 10^3/ul Absolute Basos (auto) 0.0 (0-0.2) 10^3/ul Absolute Nucleated RBC 0.0 10^3/ul Nucleated RBC % 0.0 Sodium 136 (135-145) mmol/L Potassium 4.1 (3.5-5.0) mmol/L Chloride 102 (101-111) mmol/L Carbon Dioxide 24 (22-32) mmol/L Anion Gap 10 (2-11) mmol/L BUN 19 (6-24) mg/dL Creatinine 0.85 (0.51-0.95) mg/dL Est GFR ( Amer) 79.3 (>60) Est GFR (Non-Af Amer) 65.6 (>60) BUN/Creatinine Ratio 22.4 H (8-20) Glucose 121 H (70-100) mg/dL Lactic Acid 0.9 (0.5-2.0) mmol/L Calcium 9.9 (8.6-10.3) mg/dL Total Bilirubin 0.80 (0.2-1.0) mg/dL AST 16 (13-39) U/L ALT 21 (7-52) U/L Alkaline Phosphatase 98 (34-104) U/L C-Reactive Protein 36.50 H (<8.01) mg/L Total Protein 7.3 (6.4-8.9) g/dL Albumin 4.3 (3.2-5.2) g/dL Globulin 3.0 (2-4) g/dL Albumin/Globulin Ratio 1.4 (1-3) Lipase < 10 L (11.0-82.0) U/L Result Diagrams: 06/21/19 14:30 06/21/19 14:29 Lab Statement: Any lab studies that have been ordered have been reviewed, and results considered in the medical decision making process. Abdominal Pain Fem Course/Dx - Course Course Of Treatment: Patient was evaluated in the emergency department today for constipation. Vitals noted and stable. The patient was given soapsuds enema which provided relief for pain and constipation. Patient's pain was reduced to 0 out of 10. Patient was given prescription for magnesium citrate and discharged home with outpatient follow-up. - Diagnoses Differential Diagnosis: Positive: Bowel Obstruction, Constipation Provider Diagnoses: Constipation Discharge ED - Sign-Out/Discharge Documenting (check all that apply): Patient Departure - Discharge Plan Condition: Stable Disposition: HOME Prescriptions: Magnesium CITRATE* [Citrate of Magnesia*] 150 ml PO ONCE #1 btl Patient Education Materials: Constipation (ED) Referrals: Ramon Delacruz MD [Primary Care Provider] - 3 Days Additional Instructions: Please continue to take laxatives as directed by your surgeon. Please take magnesium citrate if needed Please be sure to stay hydrated. Please follow-up with your primary care provider in 3 days. Please return to this emergency department immediately should you develop any new or worsening symptoms. - Billing Disposition and Condition Condition: STABLE Disposition: Home - Attestation Statements Provider Attestation: I was available for consultation for this patient. I did not evaluate the patient or participate in any medical decision making or disposition decisions unless I am specifically named in the chart as having consulted on the patient. If I have consulted on the patient, please see my own ED note on the patient encounter. Barbie Can MD
[2019-06-21 20:15] VITALS: BP 143/76
== END 2019-06-21 20:10 | disposition home or self-care (01) ==
LOC: ED 13:40
DX: K59.00 Constipation, unspecified (principal); E78.00 Pure hypercholesterolemia, unspecified; I10 Essential (primary) hypertension; J44.9 Chronic obstructive pulmonary disease, unspecified; Z90.711 Acquired absence of uterus with remaining cervical stump; Z87.891 Personal history of nicotine dependence; Z79.899 Other long term (current) drug therapy; Z88.2 Allergy status to sulfonamides
CPT/HCPCS: 36415; 74019; 80053; 83605; 83690; 85025; 86140; 99282

== ENCOUNTER 2019-09-30 10:10 | Observation (INO) ==
[2019-09-30] MEDS ORDERED: Ondansetron 4 mg VIAL 2 MG/ML 2 ml VIAL IV ONE (10:43)
[2019-09-30] MEDS ORDERED: Morphine 4 MG/ML VIAL (1 ml) IV ONE (10:43)
[2019-09-30 11:21] LABS: ABS Basophils 0.1 10^3/ul (0-0.2); ABS Eosinophils 0.2 10^3/ul (0-0.6); ABS Lymphocytes 0.9 10^3/ul (1.0-4.8); ABS Monocytes 0.4 10^3/ul (0-0.8); ABS Neutrophils 6.2 10^3/ul (1.5-7.7); Hematocrit 35 % (35-47); Hemoglobin 12.2 g/dL (12.0-16.0); Lymphocyte % 12.1 %; Mean Corpuscular HGB Conc 35 g/dL (31-36); Mean Corpuscular Hemoglobin 31 pg (27-31); Mean Corpuscular Volume 89 fL (80-97); Mean Platelet Volume 9.5 fL (7.4-10.4); Platelet Count 226 10^3/uL (150-450); Red Blood Count 3.95 10^6 /uL (3.70-4.87); Red Cell Distribution Width 14 % (10-15); White Blood Count 7.8 10^3/uL (3.5-10.8)
[2019-09-30 11:36] LABS: Albumin/Globulin Ratio 1.4 (1-3); BUN/Creatinine Ratio 20.2 (8-20); C Reactive Protein 4.78 mg/L (<8.01); Calcium 9.3 mg/dL (8.6-10.3); EGFR African American 75.2 (>60); EGFR Non-African American 62.2 (>60); Globulin 2.9 g/dL (2-4); Potassium 3.8 mmol/L (3.5-5.0); Total Bilirubin 0.5 mg/dL (0.2-1.0); Total Protein 6.9 g/dL (6.4-8.9)
[2019-09-30] MEDS ORDERED: Iohexol 300 (CONTRAST) 10 ML SDV IV ONE (12:01)
[2019-09-30] MEDS ORDERED: HYDROmorphone 1 MG/1 ML SYRINGE IV SLOW PU PRN (14:46)
[2019-09-30] MEDS ORDERED: NS 0.9% 1000 ml BAG 1,000 ML IV SCH (15:00)
[2019-09-30] MEDS ORDERED: Zosyn 3.375 GM IV - ED ONCE IV ONE (15:30)
[2019-09-30] MEDS: Mometasone/Formoter 200/5 MDI INH SCH (19:16)
[2019-09-30] MEDS: Piperacillin/Tazobactam VIAL 3.375 GM in NS 0.9% 100 ml BAG 100 ML IVPB SCH (20:40)
[2019-10-01] MEDS: Piperacillin/Tazobactam VIAL 3.375 GM in NS 0.9% 100 ml BAG 100 ML IVPB SCH ×3 (02:42→19:45)
[2019-10-01] MEDS: oxyCODONE/Acetamin 5/325 mg TAB PO PRN ×2 (02:48→08:45)
[2019-10-01] MEDS: Mometasone/Formoter 200/5 MDI INH SCH ×2 (07:44→19:45)
[2019-10-01] MEDS ORDERED: fentaNYL 100 mcg/2 ml 50 MCG/ML VIAL ONE ×2 (10:02→11:44)
[2019-10-01] MEDS ORDERED: Midazolam 10 mg/10 ml VIAL 1 mg/ml 10 ml VIAL (10 mg) ONE (10:02)
[2019-10-01] MEDS ORDERED: Lidocaine 2% JELLY 6 ML TOPICAL ONE (11:08)
[2019-10-02] MEDS: Piperacillin/Tazobactam VIAL 3.375 GM in NS 0.9% 100 ml BAG 100 ML IVPB SCH ×2 (03:04→11:42)
[2019-10-02] MEDS: Mometasone/Formoter 200/5 MDI INH SCH (07:12)
[2019-10-02] MEDS ORDERED: Polyethylene Glycol 3350 17 GM PACKET PO SCH (11:00)
[2019-10-02 13:24] VITALS: BP 132/70
== END 2019-10-02 13:46 | disposition home or self-care (01) ==
LOC: MEDTELE 10:10 → ED 10:10 → MEDTELE 15:29
PROVIDERS: ADMIT Surgery; ATTEND Surgery